=== PATIENT | male | born 1975 | race Caucasian/White ===

== ENCOUNTER → 2017-11-24 09:20 | Outpatient (CLI) | payer OTHER, SELFPAY ==
[2017-11-24 12:29] LABS: Absolute Lymphocyte Count 1.78 X10^3/ul (0.83-4.51); Absolute Neutrophil Count 2.3 X10^3/uL (2.0-7.7); Basophil# 0.02 X10^3/uL; Basophil% 0.4 % (0-1); Eosinophil# 0.13 X10^3/uL; Eosinophils% 2.8 % (0-5); Hematocrit 43.3 % (40-54); Hemoglobin 14.6 g/dl (13.0-16.5); Lymphocyte # 1.78 X10^3/ul (4.0); Lymphocyte % 38.3 % (19-41); Mean Corp Hgb Conc 33.7 g/gl (32-36); Mean Corpuscular Hgb 28.3 pg (27.0-32.0); Mean Corpuscular Volume 84.1 fL (80-94); Mean Platelet Vol. 10.8 fl (6.2-12.0); Monocyte# 0.45 X10^3/uL; Monocyte% 9.7 % (0-10); Neutrophil # 2.26 X10^3/uL (2.7-7.7); Neutrophil % 48.6 % (47-70); Platelet Count 217 K/mm3 (150-450); RBC Distribution Width CV 13.1 % (11.6-14.6); RBC Distribution Width SD 39.9 fl (35.1-43.9); Red Blood Count 5.15 M/mm3 (4.6-6.2); White Blood Count 4.7 K/mm3 (4.4-11.0)
[2017-11-24 12:32] LABS: POSITIVE COUNT NO; POSITIVE DIFFERENTIAL NO; POSITIVE MORPHOLOGY NO
[2017-11-24 12:38] LABS: ALB/GLOB Ratio 1.1 RATIO (0.9-2.4); AST(SGOT) 29 U/L (15-37); Alanine Aminotransfer ALT/SGPT 59 U/L (16-61); Albumin, Serum 3.9 g/dL (3.2-5.0); Alkaline Phosphatase 90 U/L (45-117); Anion Gap 6 (5-15); BUN 16 mg/dL (7-18); BUN/Creat Ratio 17.7 RATIO (10-20); Calcium,Total 8.9 mg/dL (8.5-10.1); Chloride 104 mmol/L (98-107); Cholesterol 198 mg/dL (200); Creatinine, Serum 0.91 mg/dL (0.70-1.30); EST Glomerular Filtration Rate 99 mL/min (>60); Est Glom Filt Rate - Afr Amer 119 mL/min (>60); Globulin 3.6 g/dL (2.2-4.2); Glucose 99 mg/dL (74-106); High Density Lipoprotein 80 mg/dL; Potassium 3.7 mmol/L (3.5-5.1); Protein, Total 7.5 g/dL (6.4-8.2); Sodium Level 141 mmol/L (136-145); Triglycerides 45 mg/dL; Very Low Density Lipoprotein 9 mg/dL (5-40)
== END ==
LOC: MTLAB 09:28 → MFPLAB 09:54
PROVIDERS: Family Provider Family Medicine; PCP Family Medicine; Visit Provider Family Medicine
DX: Z00.00 Encounter for general adult medical examination without abnormal findings (principal); C43.9 Malignant melanoma of skin, unspecified
CPT/HCPCS: 36415; 80053; 80061; 85025

== ENCOUNTER → 2017-12-24 11:08 | Outpatient (CLI) | payer OTHER, SELFPAY ==
--- NOTE | 2017-12-24 08:45 | MASS_PTH ---
PATIENT: NEELA CATALAN LOC: [facility] U#:[id number] AGE/SX: 49/M ROOM: RE12/24/[address]: Dr. Rafael Mckee MD : 1975 BED: DIS: SPEC #: [id number] RECD: 12/24/17 11:02 STATUS: CHANO JULEE #: [id number] ANGELA: 12/24/17 08:[address]: Rafael Mckee DEPT: SURGICAL PATHOLOGY RECD BY: Conchis Payne ENTERED: 12/24/17 12:35 SP TYPE: Mass OTHR DR: Dr. Angel Rodriges MD Tissues: Chest wall, NOS Procedures: Surgery Specimen Level IV HEADER OPERATION: Excision subcutaneous mass right chest wall PRE-OP DIAGNOSIS: Lesion of subcutaneous tissue L98.9; history melanoma TISSUE SUBMITTED: Subcutaneous mass right chest wall MICROSCOPIC DIAGNOSIS Subcutaneous mass, right chest wall, excision: Mature adipose tissue consistent with lipoma. AM:francisca 12/25/17 MICROSCOPIC DESCRIPTION Slides are reviewed. GROSS DESCRIPTION Received in fixative is one container labeled with the patient's name and designated subcutaneous mass right chest wall. The specimen consists of an irregular fragment of yellow fatty tissue measuring 4 x 2 x 1.2 cm. Serial sections reveal homogenous yellow cut surfaces without areas of cyst formation, necrosis or myxoid change. Sewer Line Repairer sections are submitted in one cassette. / AM:francisca 12/24/17 TC:1 CPT: 75217
== END ==
PROVIDERS: Family Provider Family Medicine; PCP Family Medicine; Visit Provider Surgery
DX: L98.9 Disorder of the skin and subcutaneous tissue, unspecified (principal)
CPT/HCPCS: 88305

== ENCOUNTER 2018-11-01 16:26 | Emergency (ER) | payer OTHER, SELFPAY ==
[2018-11-01 16:27] VITALS: BP 194/106; PULSE 64; RESP 18; TEMP 36.7; O2SAT 100; BMI 29.3
[2018-11-01 17:00] VITALS: BP 186/100; PULSE 58; RESP 16
--- NOTE | 2018-11-01 17:03 | RAD_ITS ---
STUDY: X-RAY CHEST REASON FOR EXAM: Male, 42 years old. Hypertension TECHNIQUE: AP COMPARISON: Prior comparison studies are not available for review at this time. FINDINGS: EKG leads project over the chest. The lungs are clear and expanded. There is no demonstrated pleural abnormality. Normal size heart. Normal mediastinum and vishnu. Normal visualized pulmonary arteries. Normal visualized aortic arch and descending thoracic aorta. No acute bony process. There is no demonstrated abnormality of the visualized soft tissue structures of the upper abdomen. RAD/Chest 1 View (Portable) IMPRESSION: Nonacute portable x-ray examination of the chest. Electronically Signed: Gianluca Lackey MD at 17:20 EST , Service support ,
--- NOTE | 2018-11-01 17:08 | ED.DCSUM_ITS ---
- ER Visit Summary Date of Service: 11/01/18 Chief Complaint: Elevated blood pressure History of Present Illness: The patient is a 42 M no segment past medical history the prior melanoma surgery many years ago. Patient states he recently stopped caffeine but really did not have excessive use. Recently his elevated blood pressure. Today's blood pressure is 160/100 and they sent in the ER to be evaluated. He really denies any significant headaches. He denies chest pain. He denies nausea, vomiting or diarrhea. He works out and he said he ran probably 15-17 miles this week without any difficulty and no chest pain. He is never been treated for hypertension before. Currently is on no medications. Physical Examination: Well-appearing middle-age male. Initial blood pressure 194 over 106. Pulse exam percent room air no signs of hypoxia. HEENT exam unremarkable. Neck nontender no lymphadenopathy. Lungs clear to auscultation bilaterally. Heart regular rhythm no murmur. Rate about 65. Abdomen soft and nontender. Normal bowel sounds no peritoneal signs. Extremities moves all 4. Calves nontender without edema. Neurologically is awake alert with no focal motor deficits. Moving all 4 extremities. 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 Normal dorsi plantar flexion. Back nontender. Skin normal. Test Results: EKG shows a normal sinus rhythm rate of 71 acute abnormality. No dysrhythmia or ischemia. CBC normal. Chemistries normal normal renal function with a creatinine of 1. Troponin normal. Portable chest x-ray one view shows no acute abnormality. Normal cardiac silhouette mediastinum. Emergency Department Course and Treatment: Patient has no history of hypertension because he is elevated blood pressures here. I am only giving him any medication and see how his blood pressure reacts on its own. He will screening labs done. Treatment Plan: Repeat exam patient is doing well at 1805. Repeat exam normal. We went over all his test results. We are not been a started on a blood pressure medication at this time because normally he runs well they showed me his most recent readings when he was giving blood. He will follow-up with his primary care physician Dr. Donte Rodriges after logging blood pressures for the next week. Return to the ER feeling worse. Disposition: Discharge Impression: Acutely elevated blood pressure This note was generated with [employer] dictation software. It may contain incorrect words, spelling, and punctuation that were not noted in review of the chart prior to signing ED Disposition - Plan for ED Patient: Referrals: Ifeanyi Rodriges MD [Primary Care Provider] -
[2018-11-01 17:30] VITALS: BP 142/94; PULSE 60; RESP 16; O2SAT 100
[2018-11-01 17:30] LABS: Absolute Lymphocyte Count 1.72 X10^3/ul (0.83-4.51); Absolute Neutrophil Count 3.3 X10^3/uL (2.0-7.7); Basophil# 0.01 X10^3/uL; Basophil% 0.2 % (0-1); Eosinophil# 0.05 X10^3/uL; Eosinophils% 0.9 % (0-5); Hematocrit 40.5 % (40-54); Hemoglobin 13.4 g/dl (13.0-16.5); Lymphocyte # 1.72 X10^3/ul (4.0); Lymphocyte % 31.2 % (19-41); Mean Corp Hgb Conc 33.1 g/gl (32-36); Mean Corpuscular Hgb 27.9 pg (27.0-32.0); Mean Corpuscular Volume 84.2 fL (80-94); Mean Platelet Vol. 10.5 fl (6.2-12.0); Monocyte# 0.42 X10^3/uL; Monocyte% 7.6 % (0-10); Neutrophil # 3.31 X10^3/uL (2.7-7.7); Neutrophil % 59.9 % (47-70); POSITIVE COUNT NO; POSITIVE DIFFERENTIAL NO; POSITIVE MORPHOLOGY NO; Platelet Count 203 K/mm3 (150-450); RBC Distribution Width CV 12.8 % (11.6-14.6); RBC Distribution Width SD 38.6 fl (35.1-43.9); Red Blood Count 4.81 M/mm3 (4.6-6.2); White Blood Count 5.5 K/mm3 (4.4-11.0)
[2018-11-01 17:46] LABS: Anion Gap 10 (5-15); BUN 17 mg/dL (7-18); BUN/Creat Ratio 17.1 RATIO (10-20); Calcium,Total 8.6 mg/dL (8.5-10.1); Chloride 107 mmol/L (98-107); EST Glomerular Filtration Rate 88 mL/min (>60); Est Glom Filt Rate - Afr Amer 106 mL/min (>60); Estimated Creatinine Clearance 107.78 ml/min; Glucose 102 mg/dL (74-106); Potassium 3.9 mmol/L (3.5-5.1); Sodium Level 145 mmol/L (136-145)
--- NOTE | 2018-11-01 18:08 | ED.DEP ---
ED Disposition - Plan for ED Patient: Disposition: Home or Assisted Living Instructions: ED Hypertension Poss Referrals: Ifeanyi Rodriges MD [Primary Care Provider] - 5-7 Days Additional Instructions: Continue to work out. Log your blood pressures twice daily and show this to Dr. Donte Rodriges when you follow-up. Return to ER if feeling a lot worse.
[2018-11-01 18:15] VITALS: BP 156/92; PULSE 57; RESP 15; O2SAT 97
== END 2018-11-01 18:18 | disposition home or self-care (01) ==
PROVIDERS: Emergency Provider Emergency Medicine; Family Provider Family Medicine; PCP Family Medicine
DX: R03.0 Elevated blood-pressure reading, without diagnosis of hypertension (principal)
CPT/HCPCS: 71045; 80048; 84484; 85025; 93005; 99284

== ENCOUNTER 2018-11-06 17:36 | Observation (INO) | payer OTHER, SELFPAY ==
[2018-11-06] VITALS (12 sets, daily range): BP systolic 133–179; BP diastolic 74–106; PULSE 50–65; RESP 15–22; TEMP 37.2; O2SAT 96–99; BMI 28.5; BMI 28.8; BMI 28.9
--- NOTE | 2018-11-06 17:47 | RAD_ITS ---
STUDY: X-RAY CHEST REASON FOR EXAM: Male, 42 years old. Fluctuating blood pressure and tightness in the throat. TECHNIQUE: 1 view COMPARISON: Prior chest radiograph of November 01, 2018 FINDINGS: The lungs are clear and expanded. There is no demonstrated pleural abnormality. Normal size heart. Normal mediastinum and vishnu. Normal visualized pulmonary arteries. Normal visualized aortic arch and descending thoracic aorta. Normal visualized thoracic spine. Normal visualized ribs, clavicles, and shoulders. There is no demonstrated abnormality of the visualized soft tissue structures of the upper abdomen. RAD/Chest 1 View (Portable) IMPRESSION: No acute cardiopulmonary findings or changes. Electronically Signed: Ibis Bocanegra MD at 18:08 EST , Service support ,
--- NOTE | 2018-11-06 17:47 | EKG12_ITS ---
Test Reason : CHEST TIGHTNESS Blood Pressure : / mmHG Vent. Rate : 051 BPM Atrial Rate : 051 BPM P-R Int : 174 ms QRS Dur : 112 ms QT Int : 438 ms P-R-T Axes : 003 033 005 degrees QTc Int : 403 ms Sinus bradycardia Inferior infarct , age undetermined Abnormal ECG Confirmed by NACHO DELACRUZ MD ([id number]), editor trade journal JOSE ANTON ([id number]) on 11/10/2018 9:18:26 AM Referred By: MARIPOSA
[2018-11-06 18:45] LABS: Absolute Lymphocyte Count 1.81 X10^3/ul (0.83-4.51); Absolute Neutrophil Count 2.5 X10^3/uL (2.0-7.7); Basophil# 0.02 X10^3/uL; Basophil% 0.4 % (0-1); Eosinophils% 2.1 % (0-5); Hematocrit 40.3 % (40-54); Hemoglobin 13.6 g/dl (13.0-16.5); Lymphocyte # 1.81 X10^3/ul (4.0); Lymphocyte % 37.2 % (19-41); Mean Corp Hgb Conc 33.7 g/gl (32-36); Mean Corpuscular Hgb 28.2 pg (27.0-32.0); Mean Corpuscular Volume 83.4 fL (80-94); Mean Platelet Vol. 10.5 fl (6.2-12.0); Monocyte% 8.2 % (0-10); Neutrophil # 2.54 X10^3/uL (2.7-7.7); Neutrophil % 52.1 % (47-70); Platelet Count 202 K/mm3 (150-450); RBC Distribution Width CV 12.8 % (11.6-14.6); RBC Distribution Width SD 38.6 fl (35.1-43.9); Red Blood Count 4.83 M/mm3 (4.6-6.2); White Blood Count 4.9 K/mm3 (4.4-11.0)
[2018-11-06 18:46] LABS: POSITIVE COUNT NO; POSITIVE DIFFERENTIAL NO; POSITIVE MORPHOLOGY NO
[2018-11-06] MEDS: Aspirin 81 MG TAB.CHEW 324 MG PO (18:49)
[2018-11-06 19:07] LABS: Anion Gap 4 (5-15); BUN 15 mg/dL (7-18); BUN/Creat Ratio 16.4 RATIO (10-20); Calcium,Total 8.5 mg/dL (8.5-10.1); Chloride 108 mmol/L (98-107); Creatinine, Serum 0.92 mg/dL (0.70-1.30); EST Glomerular Filtration Rate 97 mL/min (>60); Est Glom Filt Rate - Afr Amer 117 mL/min (>60); Estimated Creatinine Clearance 117.15 ml/min; Glucose 94 mg/dL (74-106); Potassium 3.9 mmol/L (3.5-5.1); Sodium Level 141 mmol/L (136-145)
--- NOTE | 2018-11-06 19:51 | HP.PCM_ITS ---
Problem List (1) Chest pain Status: Acute History of Present Illness Date of Admission: 11/06/18 Chief Complaint: chest pain The patient is a 42 year old M with no previous medical history of melanoma status post surgery who presented with a 5-day history of chest tightness. Associated with his symptoms is a sensation of blood running through his head which he could hear. Also has a feeling of throat tightness. He associated this with elevated blood pressure. He was at the emergency department 5 days ago where his blood pressure was elevated. He was instructed to log his blood pressure and show him to his PCP. He went to his chiropractor who adjusted his atlas after which his blood pressure returned to normal. On the day of this new presentation he was driving and he felt lightheaded. He also felt a tightness in his chest and tightness at the back of his throat. He denies any nausea, vomiting or diaphoresis. But he was burping. He called a friend who is a doctor who instructed him to come to the emergency department. His chest pain is nonradiating. He has headache and back soreness. He was given nitroglycerin which took his chest pain away but it gave him headache. He denies any aggravating factor. Past Medical History Medical History: Medical History (Last Updated 01/05/18 @ 08:34 by Sandra Lucia) Malignant melanoma of upper back C43.59 lipoma right chest wall Allergies Sulfa (Sulfonamide Antibiotics) Allergy (Verified 11/06/18 17:37) Unknown Home Medications: Ambulatory Orders Medication Instructions Recorded NK 11/26/17 Surgical History: Surgical History (Last Reviewed 11/07/18 @ 09:22 by Fransico Souza MD) History of vasectomy Z98.52 history excision melanoma on back history pilonidal cystectomy s/p Excsion lipoma right chest wall Onset Date: ~12/24/17 Lives: With Family Smoking Status: Never smoker Alcohol: Occasional - *Family History Maternal History Items: - - His mother had thyroid disease and had a thyroidectomy. Paternal History Items: - - His grandfather at the age of 48-50 in his sleep; cause of was unknown. Review of Systems Constitutional: Denies: Chills, Fever, Weight Change HEENT: Reports: Head Aches. Denies: Sinus Congestion, Sinus Drainage Cardiovascular: Reports: Chest Pain. Denies: Palpitations Respiratory: Denies: Cough, Shortness of breath at rest, Sputum production Gastrointestinal: Denies: Abdominal Pain, Nausea, Vomiting Genitourinary: Denies: Dysuria Musculoskeletal: Reports: Back Pain. Denies: Joint Pain, Joint Tenderness Skin: Denies: Rash, Wounds Neurological: Denies: Numbness, Tingling, Focal weakness Psychiatric: Denies: Anxiety, Depression, Homicidal Ideations, Suicidal Ideations Hematologic/ Lymphatic: Denies: Easy Bruising, Easy Bleeding VTE Information - Inpt Only VTE Present on Admission: No VTE Mechan Device Prophylaxis: None VTE Pharm Prophylaxis ordered?: Yes Patient Problems: Active and Suspected Problems (Last Updated 01/05/18 @ 08:34 by Sandra Lucia) Chest pain (Acute) - Physical Exam General: Alert, Oriented x3, Cooperative HEENT: Atraumatic, PERRLA, EOMI, Normocephalic Neck: Supple, No JVD, Negative Carotid Bruits Lungs: Clear to auscultation, Normal air movement Cardiovascular: No murmurs, Bradycardic Abdomen: Bowel Sounds Present, Soft, Non Tender Extremities: No edema, Capillary Refill Less than 3 Seconds Skin: No rashes, No breakdown Musculoskeletal: No Tenderness to Palpation of Joints or Extremities Neurological: Neuro grossly intact Psych/Mental Status: Normal Affect, Appropriate Vital Signs Temp Pulse Resp BP Pulse Ox 98.9 F 60 16 133/83 H 97 11/06/18 17:37 11/06/18 19:36 11/06/18 19:36 11/06/18 19:36 11/06/18 19:36 Oxygen Delivery Method Room Air Weight: 95.254 kg Body Mass Index (BMI) 28.5 Laboratory Tests Past 24 Hrs 11/06/18 11/06/18 18:35 18:35 WBC 4.9 RBC 4.83 Hgb 13.6 Hct 40.3 MCV 83.4 MCH 28.2 MCHC 33.7 RDW 12.8 RDW Differential 38.6 Plt Count 202 MPV 10.5 Immature Gran % (Auto) 0.000 Neut % (Auto) 52.1 Lymph % (Auto) 37.2 Fisher % (Auto) 8.2 Eos % (Auto) 2.1 Baso % (Auto) 0.4 Absolute Neuts (auto) 2.5 Absolute Lymphs (auto) 1.81 Total Counted Not Reportable Sodium 141 Potassium 3.9 Chloride 108 H Carbon Dioxide 29.0 Anion Gap 4 L BUN 15 Creatinine 0.92 Estim Creat Clear Calc 117.15 Est GFR (MDRD) Af Amer 117 Est GFR (MDRD) Non-Af 97 BUN/Creatinine Ratio 16.4 Glucose 94 Calcium 8.5 Troponin I < 0.015 TSH 0.60 Assessment/Plan All Active Problems (Last Updated 01/05/18 @ 08:34 by Sandra Lucia) Chest pain (Acute) The patient is a 42 year old M with no previous medical history of melanoma status post surgery who presented with a 5-day history of chest tightness; throat tightness and elevated blood pressure. Chest pain Admit to a monitored bed on PCU CXR independently reviewed confirms no acute cardiopulmonary process. EKG independently reviewed confirms no ST or T wave abnormality. Showed sinus bradycardia. Old records reviewed showed [] ASA 81 mg p.o. daily Nitropaste was placed in the emergency department. We will remove as patient to be having stress test. SL NTG 0.4 mg prn as needed for chest pain Morphine as needed for pain We will check lipid panel. High intensity statin ordered Serial cardiac enzymes Stat EKG as needed for chest pain Treadmill stress test in the AM if the cardiac enzymes are negative Will start patient on Lisinopril. Elevated blood pressure without diagnosis of hypertension. His elevated blood pressure could be because of anxiety. However because of concomitant chest pain we will start patient on low-dose of lisinopril. Consider continuing antihypertensive medication. DVT prophylaxis Continue heparin Code Visit OBSV E&M: 25408 Initial observation care L3
[2018-11-06] MEDS: Nitroglycerin Oint 1 INCH PACKET TRANSDERM. (19:56)
--- NOTE | 2018-11-06 20:04 | ED.VISSUMM ---
- ER Visit Summary Date of Service: 11/06/18 Chief Complaint: [Hypertension] History of Present Illness: The patient is a 42 M [presents the emergency department complaint of hypertension that started about 10 days ago. Patient was seen in the emergency department 5 days ago and evaluated with EKG and blood work which was unremarkable. Patient states that over the course of the week things seem to improve however today while driving he started feeling lightheaded and developed a tightness in his throat and some chest discomfort so he comes in for repeat evaluation after checking his blood pressure noting that it was in the 170s over 100s. Patient denies recent travel or surgery. Patient is a runner and is not been having chest pain or exertional dyspnea. Patient normally has a low heart rate. He denies feeling stressed or anxious. His not had hypertension in the past and does not take any medications.] Physical Examination: [HEENT-PERRLA, EOMI. Cranial nerves II through XII grossly intact. TMs clear. Mucous membranes moist. No adenopathy. Cardiovascular-regular rate and rhythm without murmur or ectopy Lungs-clear to auscultation, chest wall stable without crepitus or subcu emphysema Abdomen-normoactive bowel sounds, soft, nontender, no rebound or rigidity, no peritoneal signs. Extremities-intact ?4, normal range of motion, normal pulses, atraumatic] Test Results: [EKG obtained arrival shows sinus bradycardia with a ventricular rate of 51 bpm. CBC with differential was unremarkable. Chemistries unremarkable. Troponin was less than 0.015. TSH was 0.6. Chest x-ray showed nothing acute.] Emergency Department Course and Treatment: [Patient was given sublingual nitro which resolved his pain. Patient also had aspirin given. Patient had an inch of Nitropaste placed to the anterior chest wall] Treatment Plan: [Admit] Disposition: [Admit] Impression: [Chest pain-rule out acute viral syndrome] This note was generated with [employer] dictation software. It may contain incorrect words, spelling, and punctuation that were not noted in review of the chart prior to signing ED Disposition - Plan for ED Patient: Referrals: Ifeanyi Rodriges MD [Primary Care Provider] -
--- NOTE | 2018-11-06 21:36 | EKG12_ITS ---
Test Reason : CP ADMISSION Blood Pressure : / mmHG Vent. Rate : 054 BPM Atrial Rate : 054 BPM P-R Int : 184 ms QRS Dur : 110 ms QT Int : 434 ms P-R-T Axes : 030 -10 017 degrees QTc Int : 411 ms Sinus bradycardia Otherwise normal ECG When compared with ECG of 06-NOV-2018 17:44, MANUAL COMPARISON REQUIRED, DATA IS UNCONFIRMED Confirmed by JAYME CAMARGO, NACHO ([id number]), greeting card editor TREE CHEEK ([id number]) on 11/13/2018 9:52:02 AM Referred By: WHITLEY Confirmed By:NACHO DELACRUZ MD
[2018-11-06] MEDS: Acetaminophen 325 MG Tablet 650 MG PO (22:57)
[2018-11-06] MEDS: Lisinopril 5 MG Tablet PO (22:59)
[2018-11-06] MEDS: Atorvastatin Calcium 80 MG Tablet PO (22:59)
[2018-11-07] VITALS (9 sets, daily range): BP systolic 128–136; BP diastolic 61–79; PULSE 49–59; RESP 15–16; TEMP 36.6–36.8; O2SAT 96–98
--- NOTE | 2018-11-07 02:14 | NURSING ---
CARDIAC TROPONINS X 3 NOTED NEGATIVE. SBR-NSR ON MONITOR. PT IS NPO FOR AM STRESS TEST
[2018-11-07] MEDS: Lisinopril 5 MG Tablet PO (07:37)
[2018-11-07 07:41] LABS: Absolute Lymphocyte Count 1.42 X10^3/ul (0.83-4.51); Absolute Neutrophil Count 2.1 X10^3/uL (2.0-7.7); Basophil# 0.02 X10^3/uL; Basophil% 0.5 % (0-1); Eosinophil# 0.05 X10^3/uL; Eosinophils% 1.3 % (0-5); Hematocrit 40.3 % (40-54); Hemoglobin 13.4 g/dl (13.0-16.5); Lymphocyte # 1.42 X10^3/ul (4.0); Lymphocyte % 36.3 % (19-41); Mean Corp Hgb Conc 33.3 g/gl (32-36); Mean Corpuscular Hgb 27.8 pg (27.0-32.0); Mean Corpuscular Volume 83.6 fL (80-94); Mean Platelet Vol. 10.5 fl (6.2-12.0); Monocyte# 0.31 X10^3/uL; Monocyte% 7.9 % (0-10); Neutrophil # 2.11 X10^3/uL (2.7-7.7); Platelet Count 196 K/mm3 (150-450); RBC Distribution Width CV 12.7 % (11.6-14.6); RBC Distribution Width SD 38.3 fl (35.1-43.9); Red Blood Count 4.82 M/mm3 (4.6-6.2); White Blood Count 3.9 K/mm3 (4.4-11.0)
[2018-11-07 07:49] LABS: POSITIVE COUNT NO; POSITIVE DIFFERENTIAL NO; POSITIVE MORPHOLOGY NO
[2018-11-07 07:52] LABS: Anion Gap 8 (5-15); BUN 16 mg/dL (7-18); BUN/Creat Ratio 17.1 RATIO (10-20); Calcium,Total 8.3 mg/dL (8.5-10.1); Chloride 109 mmol/L (98-107); Cholesterol 168 mg/dL (200); Creatinine, Serum 0.93 mg/dL (0.70-1.30); EST Glomerular Filtration Rate 95 mL/min (>60); Est Glom Filt Rate - Afr Amer 115 mL/min (>60); Estimated Creatinine Clearance 115.89 ml/min; Glucose 93 mg/dL (74-106); High Density Lipoprotein 60 mg/dL; Potassium 3.7 mmol/L (3.5-5.1); Sodium Level 145 mmol/L (136-145); Triglycerides 74 mg/dL; Very Low Density Lipoprotein 15 mg/dL (5-40)
[2018-11-07] MEDS: Aspirin E.C. 81 MG Tablet PO (08:06)
[2018-11-07 08:10] LABS: International Normalized Ratio 1.1; Partial Thromboplast Time 29.3 Seconds (24.1-36.2); Prothrombin Time (Protime)PT. 13.8 SECONDS (11.7-14.9)
--- NOTE | 2018-11-07 11:53 | STRESSREP_ITS ---
Stress Test Report Exercise myocardial perfusion stress test. 42-year-old man with a history of chest pain. Stress protocol: Resting EKG demonstrates sinus bradycardia with a rate of 53 bpm normal intervals are noted resting blood pressure 142/84 mmHg. The patient exercised according to regular Yifan protocol for total duration of 9 minutes the maximum heart rate attained was 142 bpm which was 78% of maximum predicted heart rate the maximum workload was 10.1 metabolic equivalents. At rest there were no ST or T wave changes noted suggest ischemia peak exercise upsloping ST changes only were noted with no meet the criteria for ischemia. The resting blood pressure was 142/84 with a peak blood pressure of 240/104. Rate pressure product was 32,600. The test was terminated due to hypertensive response to exercise. No chest pain was noted. Cardio perfusion protocol. 12.0 mCi of technetium 99m sestamibi was injected at rest. The patient exerci sed according to regular Yifan protocol for total duration of 9 minutes at peak exercise 35.9 mCi of technetium 99m sestamibi was injected stress images were obtained stress and rest images were reconstructed and compared in the short axis vertical and horizontal long axis. Gated images were also obtained next Perfusion SPECT analysis: Review of the stress images demonstrate normal uptake of tracer noted in all areas of myocardium. The rest images similarly demonstrate normal uptake of tracer noted in all areas of the myocardium. No areas of reversibility are noted suggest ischemia no previous infarct is noted. Gated SPECT analysis: The gated ejection fraction is noted to be 56%. Conclusion: Exercise stress test with no EKG criteria for ischemia at a high workload. Nuclear images demonstrate normal perfusion. Hypertensive response to exercise. Preserved ejection fraction.
--- NOTE | 2018-11-07 14:10 | DCINST_ITS ---
- Discharge Diagnoses Current Active Problems: Current Active and Chronic Problems (Last Updated 01/05/18 @ 08:34 by Sandra Lucia) Chest pain (Acute) Reason(s) for Visit for Discharge Instructions: Chest pain You will use the following diet at home:: Cardiac Your food should be the consistency of: Regular Your liquids should be the consistency of: Regular/Thin Discharge Activity: Return to Normal Activity Additional Instructions: Continue to take all your medications. Follow-up for 2d-echo. Follow-up with Dr. Kim within 2 weeks. Follow-up with Dr. Rodriges within 2 weeks. Maintain a heart healthy diet. We have discussed potential side- effects of Lisinopril. Allergies/Adverse Reactions: Allergies Sulfa (Sulfonamide Antibiotics) Allergy (Verified 11/06/18 17:37) Unknown Medications to take at Discharge Lisinopril [Zestril] 10 mg PO DAILY #30 tablet 11/07/18 The following prescriptions were given: Lisinopril [Zestril] 10 mg PO DAILY #30 tablet Primary Care Physician: Ifeanyi Rodriges MD [Primary Care Provider] - Please follow up with your Primary Care Physician in: within 1-2 weeks Test Results: Test results from this visit will be discussed in further detail at your follow- up appointment, if applicable. Please Follow Up With: Gray Kim MD - \ When: within 1-2 weeks Proposed Discharge Date: 11/07/18
--- NOTE | 2018-11-07 14:18 | DS.PCM_ITS ---
Discharge Date and Diagnosis Date of Admission: 11/06/18 Date of Discharge: 11/07/18 - Primary Discharge Diagnosis Active and Suspected Problems (Last Updated 01/05/18 @ 08:34 by Sandra Lucia) Chest pain (Acute) Hypertensive urgency Hospital Course and Treatment Imaging Results: 11/07/18 05:55 Nuclear Stress Test - Treadmil [NM] AM (NON MEDS) Clinical Impression(s) from Imaging Studies Chest X-Ray 11/06/18 17:47 IMPRESSION: No acute cardiopulmonary findings or changes. Electronically Signed: Ibis Bocanegra MD at 18:08 EST , Service support , None Operations: None Summary of Care Provided: The patient is a 42 year old M with no significant medical history except for melanoma status post removal who comes with a 5-day history of chest tightness and a sensation of blood running through his head associated throat tightness. Patient has associated with this with elevated blood pressure. Patient had admitted to some chest tightness with lightheadedness but denied any nausea vomiting or diaphoresis. His chest pain went away when he was given nitrog lycerin in the emergency department. His admitting EKG was unremarkable. Troponins were negative. He was admitted to telemetry bed. No acute events. He underwent a stress test that was negative. Stress test was stopped after 7-9 minutes because his blood pressure was elevated more than 200 systolic. Patient was started on lisinopril, asked to do echo in the outpatient, he will follow-up with Dr. Kim within 2 weeks. Subjective: The day of discharge, patient felt improved, denied any new complaints. - Physical Exam General: Alert, Oriented x3, Cooperative, No apparent distress HEENT: Atraumatic, PERRLA, EOMI, Normocephalic Oral: Moist Mucosa Neck: Supple Lungs: Clear to auscultation, Normal air movement Cardiovascular: Regular rate, Regular Rhythm, Normal S1, Normal S2, No murmurs Abdomen: Bowel Sounds Present, Soft, Non Tender, Non-Distended, No Hepato- splenomegaly Extremities: No edema Skin: No rashes, No breakdown Musculoskeletal: No Tenderness to Palpation of Joints or Extremities Lymphatic: No Cervical, Supraclavicular, or Inguinal Adenopathy Neurological: Cranial nerves II-XII grossly intact, Neuro grossly intact Psych/Mental Status: Normal Affect, Appropriate Vital Signs Temp Pulse Resp BP Pulse Ox 98.2 F 58 L 16 128/79 H 96 11/07/18 10:46 11/07/18 12:06 11/07/18 10:46 11/07/18 12:06 11/07/18 10:46 Oxygen Delivery Method Room Air Weight: 96.5 kg Body Mass Index (BMI) 28.8 Intake and Output for Last 24 Hours 11/05/18 11/06/18 11/07/18 23:59 23:59 23:59 Intake Total 150 / 150 120 / 120 Balance 150 / 150 120 / 120 Laboratory Tests Past 24 Hrs 11/06/18 11/06/18 11/06/18 18:35 18:35 21:52 WBC 4.9 RBC 4.83 Hgb 13.6 Hct 40.3 MCV 83.4 MCH 28.2 MCHC 33.7 RDW 12.8 RDW Differential 38.6 Plt Count 202 MPV 10.5 Immature Gran % (Auto) 0.000 Neut % (Auto) 52.1 Lymph % (Auto) 37.2 Guadalupe % (Auto) 8.2 Eos % (Auto) 2.1 Baso % (Auto) 0.4 Absolute Neuts (auto) 2.5 Absolute Lymphs (auto) 1.81 Total Counted Not Reportable PT INR APTT Sodium 141 Potassium 3.9 Chloride 108 H Carbon Dioxide 29.0 Anion Gap 4 L BUN 15 Creatinine 0.92 Estim Creat Clear Calc 117.15 Est GFR (MDRD) Af Amer 117 Est GFR (MDRD) Non-Af 97 BUN/Creatinine Ratio 16.4 Glucose 94 Calcium 8.5 Troponin I < 0.015 < 0.015 Triglycerides Cholesterol LDL Cholesterol VLDL Cholesterol HDL Cholesterol TSH 0.60 11/07/18 11/07/18 11/07/18 00:24 07:05 07:05 WBC RBC Hgb Hct MCV MCH MCHC RDW RDW Differential Plt Count MPV Immature Gran % (Auto) Neut % (Auto) Lymph % (Auto) Guadalupe % (Auto) Eos % (Auto) Baso % (Auto) Absolute Neuts (auto) Absolute Lymphs (auto) Total Counted PT 13.8 INR 1.1 APTT 29.3 Sodium 145 Potassium 3.7 Chloride 109 H Carbon Dioxide 28.0 Anion Gap 8 BUN 16 Creatinine 0.93 Estim Creat Clear Calc 115.89 Est GFR (MDRD) Af Amer 115 Est GFR (MDRD) Non-Af 95 BUN/Creatinine Ratio 17.1 Glucose 93 Calcium 8.3 L Troponin I < 0.015 Triglycerides 74 Cholesterol 168 LDL Cholesterol 93 VLDL Cholesterol 15 HDL Cholesterol 60 TSH 11/07/18 07:05 WBC 3.9 L RBC 4.82 Hgb 13.4 Hct 40.3 MCV 83.6 MCH 27.8 MCHC 33.3 RDW 12.7 RDW Differential 38.3 Plt Count 196 MPV 10.5 Immature Gran % (Auto) 0.000 Neut % (Auto) 54.0 Lymph % (Auto) 36.3 Guadalupe % (Auto) 7.9 Eos % (Auto) 1.3 Baso % (Auto) 0.5 Absolute Neuts (auto) 2.1 Absolute Lymphs (auto) 1.42 Total Counted Not Reportable PT INR APTT Sodium Potassium Chloride Carbon Dioxide Anion Gap BUN Creatinine Estim Creat Clear Calc Est GFR (MDRD) Af Amer Est GFR (MDRD) Non-Af BUN/Creatinine Ratio Glucose Calcium Troponin I Triglycerides Cholesterol LDL Cholesterol VLDL Cholesterol HDL Cholesterol TSH Discharge Diet: Low fat/ Low Cholesterol, 2000 mg Sodium Diet Discharge Activity: Return to Normal Activity Home Medications: Medications to take at Discharge Lisinopril [Zestril] 10 mg PO DAILY #30 tablet 11/07/18 Following Prescrptions Were Given to Patient: Lisinopril [Zestril] 10 mg PO DAILY #30 tablet Other Amb Orders: Echo Complete [ECHO] Location: None Selected Primary Care Physician: Ifeanyi Rodriges MD [Primary Care Provider] - Please follow up with your Primary Care Physician in: within 1-2 weeks Please Follow Up With: Gray Kim MD - \ When: within 1-2 weeks Disposition: Home Minutes spent on discharge:: 40 Patient Condition:: Stable Medical Necessity - Tobacco Use Smoking Status: Never smoker Tobacco Use: Non-smoker Meaningful Use Info Meaningful Use Diagnoses (Choose all that apply): None applicable Code Visit Inpatient E&M: 79771 Disch Hosp
== END 2018-11-07 14:03 | disposition home or self-care (01) ==
LOC: ED 18:38 → PCU 20:31
PROVIDERS: Admitting Provider Hospitalist; Emergency Provider Emergency Medicine; Family Provider Family Medicine; PCP Family Medicine; Visit Provider Internal Medicine
DX: R07.89 Other chest pain (principal); I16.0 Hypertensive urgency; Z85.820 Personal history of malignant melanoma of skin; R03.0 Elevated blood-pressure reading, without diagnosis of hypertension
CPT/HCPCS: 36415; 71045; 78452; 80048; 80061; 84443; 84484; 85025; 85610; 85730; 93005; 93017; 99218; 99283; A9500; A4216; G0378

== ENCOUNTER → 2018-11-10 10:56 | Outpatient (CLI) | payer OTHER, SELFPAY ==
[2018-11-06 21:18] VITALS: BMI 28.8
[2018-11-10 12:12] LABS: Absolute Lymphocyte Count 1.38 X10^3/ul (0.83-4.51); Absolute Neutrophil Count 3.5 X10^3/uL (2.0-7.7); Basophil# 0.02 X10^3/uL; Basophil% 0.4 % (0-1); Eosinophil# 0.03 X10^3/uL; Eosinophils% 0.6 % (0-5); Hematocrit 42.5 % (40-54); Hemoglobin 14.2 g/dl (13.0-16.5); Lymphocyte # 1.38 X10^3/ul (4.0); Lymphocyte % 25.7 % (19-41); Mean Corp Hgb Conc 33.4 g/gl (32-36); Mean Corpuscular Volume 83.8 fL (80-94); Mean Platelet Vol. 11.2 fl (6.2-12.0); Monocyte# 0.47 X10^3/uL; Monocyte% 8.8 % (0-10); Neutrophil # 3.47 X10^3/uL (2.7-7.7); Neutrophil % 64.5 % (47-70); Platelet Count 219 K/mm3 (150-450); RBC Distribution Width CV 12.9 % (11.6-14.6); RBC Distribution Width SD 38.8 fl (35.1-43.9); Red Blood Count 5.07 M/mm3 (4.6-6.2); White Blood Count 5.4 K/mm3 (4.4-11.0)
[2018-11-10 12:13] LABS: POSITIVE COUNT NO; POSITIVE DIFFERENTIAL NO; POSITIVE MORPHOLOGY NO
[2018-11-10 12:17] LABS: Color, Urine Yellow (Yellow); Glucose, Dipstick Normal (Normal); Ketone-Dipstick Negative (Negative); Leukocyte Esterase-Dipstick 25 /ul (Negative); Nitrite-Dipstick Negative (Negative); Occult Blood-Urine Negative /ul (Negative); Protein-Dipstick Negative (Negative); Urine Bilirubin Dipstick Negative (Negative); Urine Clarity Clear (Clear); Urine Urobilinogen Normal (Normal)
[2018-11-10 12:59] LABS: ALB/GLOB Ratio 1.2 RATIO (0.9-2.4); AST(SGOT) 18 U/L (15-37); Alanine Aminotransfer ALT/SGPT 39 U/L (16-61); Albumin, Serum 4.1 g/dL (3.2-5.0); Alkaline Phosphatase 82 U/L (45-117); Anion Gap 10 (5-15); BUN 13 mg/dL (7-18); BUN/Creat Ratio 12.6 RATIO (10-20); CRP, High Sensitivity Cardiac 0.61 mg/L; Calcium,Total 8.7 mg/dL (8.5-10.1); Chloride 107 mmol/L (98-107); Creatinine, Serum 1.03 mg/dL (0.70-1.30); EST Glomerular Filtration Rate 85 mL/min (>60); Est Glom Filt Rate - Afr Amer 102 mL/min (>60); Free T3 3.2 pg/mL (2.18-3.98); Globulin 3.4 g/dL (2.2-4.2); Glucose 85 mg/dL (74-106); Potassium 3.8 mmol/L (3.5-5.1); Protein, Total 7.5 g/dL (6.4-8.2); Sodium Level 145 mmol/L (136-145); T4 Total, Thyroxin 8.5 ug/dL (4.5-12.1); Thyroid Stim Hormone (TSH) 0.86 uIU/mL (0.358-3.74)
== END ==
PROVIDERS: Family Provider Family Medicine; PCP Family Medicine; Referring Provider Family Medicine; Visit Provider Family Medicine
DX: I10 Essential (primary) hypertension (principal)
CPT/HCPCS: 36415; 80053; 81002; 83970; 84403; 84436; 84443; 84481; 85025; 86141

== ENCOUNTER → 2018-11-10 13:00 | Outpatient (CLI) | payer OTHER, SELFPAY ==
[2018-11-06 21:18] VITALS: BMI 28.8
== END ==
PROVIDERS: Family Provider Family Medicine; PCP Family Medicine; Referring Provider Family Medicine; Visit Provider Family Medicine
DX: I10 Essential (primary) hypertension (principal)
CPT/HCPCS: 93788

== ENCOUNTER → 2018-11-12 08:48 | Outpatient (CLI) | payer OTHER, SELFPAY ==
[2018-11-06 21:18] VITALS: BMI 28.8
--- NOTE | 2018-11-12 08:56 | RDU_ITS ---
Reason For Study: HYPERTENSION Right Renal Artery Left Renal Artery Right renal artery ostium 130/42.9 Left renal artery ostium 120/37 RSV/EDV. PSV/EDV. Right renal artery proximal 139/52 Left renal artery proximal PSV/EDV PSV/EDV. 122/45.3 . Right renal artery mid 156/45.6 Left renal artery mid 132/42.9 PSV/EDV. PSV/EDV . Right renal artery distal 146/42.9 Left renal artery distal 147/45.7 PSV/EDV. PSV/EDV. Right Renal Parenchyma Left Renal Parenchyma Upper Pole Medula 29.0/9.5 PSV/EDV. Left upper pole medulla 33.6/13.1 Right upper pole medulla EDR .33 . PSV/EDV . Right upper pole medulla R.I. .67 . Left upper pole medulla EDR .39 . Upper Kyle Cortx 27.2/9.8 PSV/EDV. Left upper pole medulla R.I. .61 . Right upper pole cortex EDR .36 . UP Cortex 26.0/8.3 PSV/EDV. Right upper pole cortex R.I. .64 . Left upper pole cortex EDR .32 . Right lower Pole medulla 33.9/10.4 Left upper pole cortex R.I. .68 . PSV/EDV . Left lower Pole medulla 33.9/12.5 Right lower pole medulla EDR .31 . PSV/EDV . Right lower pole medulla R.I. .69 . Left lower pole medulla EDR .37 . Lower Pole Cortex 29.0/10.7 Left lower pole medulla R.I. .63 . PSV/EDV. Lower Pole Cortx 28.7/9.8 PSV/EDV. Right lower pole cortex EDR .37 . Left lower pole cortex EDR .34 . Right lower pole cortex R.I. .63 . Left lower pole cortex R.I. .66 . Right Renal Hilar Left Renal Hilar Right Hilar avg 68.4/26.0 PSV/EDV. LT Hilar avg 47.7/16.2 PSV/EDV . Right hilar acceleration time 73 Left hilar acceleration time 51 m/sec. m/sec. Right Renal Dimensions Left Renal Dimensions Right kidney size 11.2 cm . Left kidney size 11.1 cm . Right cortical dimension 1.5 cm . Left cortical dimension 1.6 cm . Aorta Proximal abdominal aorta 1.6 X 1.6 cm . Distal abdominal aorta 1.5 X 1.5 cm . Proximal abdominal aorta peak systolic velocity is 133 cm/sec . Distal abdominal aorta peak systolic velocity is 128 cm/sec . Interpretation Summary Dimensions of the intra-abdominal aorta appear normal, without evidence of aneurysmal dilatation. Renal artery velocities are bilaterally normal. Acceleration times are normal bilaterally. There is no evidence of hemodynamically significant renal artery stenosis on either side. Renovascular resistance appears to be bilaterally normal . The right cortical dimension is normal. The left cortical dimension is increased. Kidneys appear normal in size bilaterally. Ordering Physician: Kenn Mcdonough Referring Physician: Kenn Mcdonough Performed By: Niki Allan RVT
--- NOTE | 2018-11-12 09:23 | ECHOD_ITS ---
Reason For Study: CP Procedure This was a 2D Doppler, Color Flow transthoracic echocardiogram. Exam performed in department. Left Ventricle Normal LV size. Left ventricular systolic function is normal. The estimated ejection fraction is 60 %. No evidence for diastolic dysfunction. No regional wall motion abnormalities noted. Right Ventricle Normal RV size. Normal systolic function. Atria The left atrium is mildly enlarged. The right atrium is mildly enlarged. Mitral Valve Normal mitral valve. Tricuspid Valve Normal tricuspid valve. Aortic Valve Normal aortic valve. Trisinus/trileaflet aortic valve. Pulmonic Valve Normal pulmonic valve. Great Vessels Normal aortic root. The pulmonary artery is normal size. Normal inferior vena cava. Pericardium/Pleural No pericardial effusion. MMode/2D Measurements & Calculations LVIDd: 5.7 cm IVSd: 1.2 cm Ao root diam: 3.6 cm LVIDs: 3.8 cm LVPWd: 1.1 cm LA dimension: 3.9 cm RVDd: 4.2 cm FS: 33.0 % LAV(MOD-bp): 65.3 ml LA A4 area: 20.1 cm2 RA A4 area: 22.4 cm2 LAV(MOD-bp) Indexed: 30.3 ml/m2 LAV(MOD-sp2): 68.7 ml LAV(MOD-sp4): 59.9 ml Time Measurements MV dec time: 0.24 sec Doppler Measurements & Calculations MV E max duke: 97.1 cm/sec Lat Peak E' Duke: 21.4 cm/sec Med Peak E' Duke: 13.8 cm/sec MV A max duke: 54.2 cm/sec E/E' lat: 4.5 E/E' med: 7.1 MV E/A: 1.8 MV V2 max: 100.4 cm/sec MV P1/2t max duke: 98.9 cm/sec Ao V2 max: 119.1 cm/sec MV max P.0 mmHg MV P1/2t: 99.7 msec Ao max P.7 mmHg MV V2 mean: 44.8 cm/sec MV dec slope: 290.4 cm/sec2 Ao V2 mean: 80.0 cm/sec MV mean P.0 mmHg MVA(P1/2t): 2.2 cm2 Ao mean P.8 mmHg MV V2 VTI: 37.9 cm Ao V2 VTI: 25.3 cm LV V1 max: 100.3 cm/sec PA V2 max: 109.8 cm/sec LV V1 max P.0 mmHg LV V1 mean P.1 mmHg LV V1 mean: 67.8 cm/sec LV V1 VTI: 24.9 cm Interpretation Summary Normal LV size. Left ventricular systolic function is normal. The estimated ejection fraction is 60 %. No evidence for diastolic dysfunction. Structurally normal valves. Ordering Physician: Kenn Mcdonough Referring Physician: Kenn Mcdonough Performed By: Earl Macias RCS
[2018-11-19 13:11] LABS: Aldosterone, 24Ur 7.69 ug/24 hr (0.00-19.00); Aldosterone, Ur 2.63 ug/L (Not Estab.); Metanephrine, Ur 28 ug/L (Undefined); Metanephrines, 24Ur 82 ug/24 hr (45-290); Normetanephrines, 24Ur 234 ug/24 hr (82-500); Normetanephrines, Ur 80 ug/L (Undefined)
== END ==
PROVIDERS: Family Provider Family Medicine; PCP Family Medicine; Referring Provider Family Medicine; Visit Provider Family Medicine
DX: R07.9 Chest pain, unspecified (principal); I10 Essential (primary) hypertension
CPT/HCPCS: 82088; 83835; 93306; 93975

== ENCOUNTER → 2018-11-18 11:12 | Outpatient (CLI) | payer OTHER, SELFPAY ==
[2018-11-18 10:00] VITALS: BMI 28.6
[2018-11-23 12:08] LABS: Dopamine, Pl <30 pg/mL (0-48); Epinephrine, Pl 21 pg/mL (0-62); Norepinephrine, Pl 908 pg/mL (0-874)
[2018-11-23 12:15] LABS: Aldosterone, Serum 4.6 ng/dL (0.0-30.0); Renin, Plasma 0.245 ng/mL/hr (0.167-5.380)
== END ==
PROVIDERS: Family Provider Family Medicine; PCP Family Medicine; Referring Provider Internal Medicine Cardiovascular Disease; Visit Provider Internal Medicine Cardiovascular Disease
DX: I10 Essential (primary) hypertension (principal)
CPT/HCPCS: 36415; 82088; 82384; 84244

== ENCOUNTER → 2018-12-11 15:06 | Outpatient (CLI) | payer OTHER, SELFPAY ==
[2018-11-18 10:00] VITALS: BMI 28.6
[2018-12-11 17:51] LABS: Progesterone Level 0.22 ng/mL (See Comment); Vitamin B12 541 pg/mL (211-911); Vitamin D,25 Hydroxy 18.1 ng/mL (29.95-100.01)
[2018-12-11 18:21] LABS: Homocysteine 7.1 umol/L (3.2-10.7)
[2018-12-11 20:05] LABS: Estradiol 21.8 pg/mL; Iron 77 ug/dL (65-175); PSA,Total - Annual Screen 1.41 ng/mL (0.00-4.00); Prolactin 10.1 ng/mL
[2018-12-11 20:16] LABS: Hemoglobin A1c 5.8 % (4.2-6.3)
[2018-12-16 09:17] LABS: DHEA Sulfate 276.4 ug/dL (102.6-416.3); Insulin Like Growth Factor 167 ng/mL (75-216); Testosterone, % Free 2.79 % (1.50-4.20)
[2018-12-16 11:30] LABS: Sex Hormone-binding Globulin 36.4 nmol/L (16.5-55.9); Testosterone, Total 276 ng/dL (264-916)
== END ==
PROVIDERS: Family Provider Family Medicine; PCP Family Medicine; Referring Provider Registered Nurse; Visit Provider Registered Nurse
DX: R53.82 Chronic fatigue, unspecified (principal); M62.81 Muscle weakness (generalized); E29.1 Testicular hypofunction
CPT/HCPCS: 36415; 82306; 82533; 82607; 82627; 82670; 82746; 83001; 83002; 83036; 83090; 83540; 84144; 84146; 84153; 84270; 84305; 84402; 84403; 82626; G0103

== ENCOUNTER → 2019-02-10 07:55 | Outpatient (CLI) | payer OTHER, SELFPAY ==
[2018-11-18 10:00] VITALS: BMI 28.6
[2019-02-10 10:20] LABS: Hemoglobin A1c 5.6 % (4.2-6.3)
[2019-02-10 10:22] LABS: Progesterone Level 0.49 ng/mL (See Comment); Vitamin B12 405 pg/mL (211-911); Vitamin D,25 Hydroxy 40.8 ng/mL (29.95-100.01)
[2019-02-10 11:36] LABS: AST(SGOT) 20 U/L (15-37); Alanine Aminotransfer ALT/SGPT 30 U/L (16-61); Albumin, Serum 3.4 g/dL (3.2-5.0); Alkaline Phosphatase 61 U/L (45-117); Anion Gap 7 (5-15); BUN 15 mg/dL (7-18); Calcium,Total 8.3 mg/dL (8.5-10.1); Chloride 106 mmol/L (98-107); Cholesterol 171 mg/dL (200); EST Glomerular Filtration Rate 87 mL/min (>60); Est Glom Filt Rate - Afr Amer 106 mL/min (>60); Estradiol 43.8 pg/mL; Globulin 3.3 g/dL (2.2-4.2); Glucose 100 mg/dL (74-106); High Density Lipoprotein 56 mg/dL; PSA,Total - Annual Screen 1.31 ng/mL (0.00-4.00); Potassium 3.6 mmol/L (3.5-5.1); Protein, Total 6.7 g/dL (6.4-8.2); Sodium Level 142 mmol/L (136-145); Triglycerides 41 mg/dL; Very Low Density Lipoprotein 8 mg/dL (5-40)
[2019-02-15 03:06] LABS: Testosterone, % Free 3.66 % (1.50-4.20); Testosterone, Free 38.36 ng/dL (5.00-21.00)
[2019-02-15 11:10] LABS: DHEA Sulfate 268.3 ug/dL (102.6-416.3); Testosterone, Total 1048 ng/dL (264-916)
== END ==
PROVIDERS: Family Provider Family Medicine; PCP Family Medicine; Referring Provider Registered Nurse; Visit Provider Registered Nurse
DX: R53.82 Chronic fatigue, unspecified (principal); M62.81 Muscle weakness (generalized); E29.1 Testicular hypofunction
CPT/HCPCS: 36415; 80053; 80061; 82306; 82607; 82627; 82670; 82746; 83036; 84144; 84153; 84402; 84403; 82626; G0103

== ENCOUNTER → 2019-04-16 06:50 | Outpatient (CLI) | payer OTHER, SELFPAY ==
[2018-11-18 10:00] VITALS: BMI 28.6
[2019-04-16 07:37] LABS: Hematocrit 41.2 % (40-54); Hemoglobin 12.9 g/dL (13.0-16.5); Mean Corp Hgb Conc 31.3 g/dL (32-36); Mean Corpuscular Hgb 25.4 pg (27.0-32.0); Mean Corpuscular Volume 81.1 fL (80-94); Mean Platelet Vol. 10.4 fl (6.2-12.0); Platelet Count 234 K/mm3 (150-450); Red Blood Count 5.08 M/mm3 (4.6-6.2); White Blood Count 4.6 K/mm3 (4.4-11.0)
[2019-04-16 09:58] LABS: Progesterone Level 0.79 ng/mL (See Comment); Vitamin B12 382 pg/mL (211-911); Vitamin D,25 Hydroxy 51.4 ng/mL (29.95-100.01)
[2019-04-16 11:46] LABS: ALB/GLOB Ratio 1.2 RATIO (0.9-2.4); AST(SGOT) 14 U/L (15-37); Alanine Aminotransfer ALT/SGPT 24 U/L (16-61); Albumin, Serum 3.6 g/dL (3.2-5.0); Alkaline Phosphatase 52 U/L (45-117); Anion Gap 4 (5-15); BUN 16 mg/dL (7-18); BUN/Creat Ratio 14.8 RATIO (10-20); Calcium,Total 8.5 mg/dL (8.5-10.1); Chloride 109 mmol/L (98-107); Cholesterol 162 mg/dL (200); Creatinine, Serum 1.08 mg/dL (0.70-1.30); EST Glomerular Filtration Rate 80 mL/min (>60); Est Glom Filt Rate - Afr Amer 97 mL/min (>60); Estradiol 41.8 pg/mL; Globulin 3.1 g/dL (2.2-4.2); Glucose 99 mg/dL (74-106); High Density Lipoprotein 53 mg/dL; Potassium 4.1 mmol/L (3.5-5.1); Protein, Total 6.7 g/dL (6.4-8.2); Sodium Level 142 mmol/L (136-145); Triglycerides 60 mg/dL; Very Low Density Lipoprotein 12 mg/dL (5-40)
[2019-04-19 09:07] LABS: Testosterone, % Free 4.24 % (1.50-4.20); Testosterone, Free 61.14 ng/dL (5.00-21.00)
[2019-04-19 11:57] LABS: Testosterone, Total 1442 ng/dL (264-916)
== END ==
PROVIDERS: Family Provider Family Medicine; PCP Family Medicine
DX: M62.81 Muscle weakness (generalized) (principal); R53.82 Chronic fatigue, unspecified; E29.1 Testicular hypofunction
CPT/HCPCS: 36415; 80053; 80061; 82306; 82607; 82627; 82670; 82746; 84144; 84402; 84403; 85027; 82626

== ENCOUNTER → 2019-07-23 08:38 | Outpatient (CLI) | payer OTHER, SELFPAY ==
[2018-11-18 10:00] VITALS: BMI 28.6
[2019-07-23 10:16] LABS: Hematocrit 43.2 % (40-54); Hemoglobin 13.5 g/dL (13.0-16.5); Mean Corp Hgb Conc 31.3 g/dL (32-36); Mean Corpuscular Hgb 25.4 pg (27.0-32.0); Mean Corpuscular Volume 81.2 fL (80-94); Mean Platelet Vol. 10.4 fl (6.2-12.0); Platelet Count 235 K/mm3 (150-450); RBC Distribution Width CV 17.4 % (11.6-14.6); RBC Distribution Width SD 51.1 fl (35.1-43.9); Red Blood Count 5.32 M/mm3 (4.6-6.2); White Blood Count 6.4 K/mm3 (4.4-11.0)
[2019-07-23 10:40] LABS: Hemoglobin A1c 5.5 % (4.2-6.3)
[2019-07-23 10:42] LABS: Progesterone Level 0.93 ng/mL (See Comment); Vitamin B12 704 pg/mL (211-911)
[2019-07-23 10:47] LABS: AST(SGOT) 74 U/L (15-37); Alanine Aminotransfer ALT/SGPT 160 U/L (16-61); Albumin, Serum 3.7 g/dL (3.2-5.0); Alkaline Phosphatase 180 U/L (45-117); Anion Gap 5 (5-15); BUN 19 mg/dL (7-18); BUN/Creat Ratio 15.4 RATIO (10-20); CRP, High Sensitivity Cardiac 5.04 mg/L; Calcium,Total 8.9 mg/dL (8.5-10.1); Chloride 103 mmol/L (98-107); Cholesterol 182 mg/dL (200); Creatinine, Serum 1.23 mg/dL (0.70-1.30); EST Glomerular Filtration Rate 69 mL/min (>60); Est Glom Filt Rate - Afr Amer 83 mL/min (>60); Estradiol 28.6 pg/mL; Follicle Stimulating Hormone < 0.2 mIU/mL; Globulin 3.6 g/dL (2.2-4.2); Glucose 94 mg/dL (74-106); High Density Lipoprotein 63 mg/dL; Iron 58 ug/dL (65-175); Luteinizing Hormone < 0.2 mIU/mL; Magnesium 2.1 mg/dL (1.6-2.6); Potassium 4.2 mmol/L (3.5-5.1); Prolactin 8.6 ng/mL; Protein, Total 7.3 g/dL (6.4-8.2); Sodium Level 138 mmol/L (136-145); T4 Total, Thyroxin 9.8 ug/dL (4.5-12.1); Thyroid Stim Hormone (TSH) 0.39 uIU/mL (0.358-3.74); Triglycerides 49 mg/dL; Very Low Density Lipoprotein 10 mg/dL (5-40)
[2019-07-23 10:50] LABS: Homocysteine 6.7 umol/L (3.2-10.7)
[2019-07-26 15:08] LABS: DHEA Sulfate 212.9 ug/dL (102.6-416.3); Insulin Like Growth Factor 178 ng/mL (75-216); Testosterone, % Free 2.42 % (1.50-4.20); Testosterone, Free 20.18 ng/dL (5.00-21.00)
[2019-07-26 22:38] LABS: Sex Hormone-binding Globulin 30.6 nmol/L (16.5-55.9); Testosterone, Total 834 ng/dL (264-916)
== END ==
PROVIDERS: Family Provider Family Medicine; PCP Family Medicine; Referring Provider Nurse Practitioner Family; Visit Provider Nurse Practitioner Family
DX: E29.1 Testicular hypofunction (principal); M62.81 Muscle weakness (generalized); R53.82 Chronic fatigue, unspecified; R68.82 Decreased libido
CPT/HCPCS: 36415; 80053; 80061; 82306; 82533; 82607; 82627; 82670; 82746; 83001; 83002; 83036; 83090; 83540; 83735; 84144; 84146; 84270; 84305; 84402; 84403; 84436; 84439; 84443; 84481; 85027; 86141; 82626

== ENCOUNTER → 2019-08-11 09:04 | Outpatient (CLI) | payer OTHER, SELFPAY ==
[2018-11-18 10:00] VITALS: BMI 28.6
[2019-08-11 10:02] LABS: Absolute Neutrophil Count 1.9 X10^3/uL (2.0-7.7); Basophil# 0.02 X10^3/uL; Basophil% 0.4 % (0-1); Eosinophil# 0.08 X10^3/uL; Eosinophils% 1.8 % (0-5); Hematocrit 43.1 % (40-54); Hemoglobin 13.7 g/dL (13.0-16.5); Lymphocyte % 46.1 % (19-41); Mean Corp Hgb Conc 31.8 g/dL (32-36); Mean Corpuscular Hgb 25.7 pg (27.0-32.0); Mean Corpuscular Volume 80.7 fL (80-94); Monocyte# 0.45 X10^3/uL; Monocyte% 9.9 % (0-10); NRBC Flagged by Analyzer 0 % (0-5); Neutrophil % 41.6 % (47-70); Platelet Count 225 K/mm3 (150-450); RBC Distribution Width CV 16.1 % (11.6-14.6); RBC Distribution Width SD 46.1 fl (35.1-43.9); Red Blood Count 5.34 M/mm3 (4.6-6.2); White Blood Count 4.6 K/mm3 (4.4-11.0)
[2019-08-11 10:13] LABS: ALB/GLOB Ratio 1.1 RATIO (0.9-2.4); AST(SGOT) 29 U/L (15-37); Alanine Aminotransfer ALT/SGPT 56 U/L (16-61); Albumin, Serum 3.8 g/dL (3.2-5.0); Alkaline Phosphatase 87 U/L (45-117); Anion Gap 4 (5-15); BUN 15 mg/dL (7-18); BUN/Creat Ratio 13.5 RATIO (10-20); Calcium,Total 8.7 mg/dL (8.5-10.1); Chloride 106 mmol/L (98-107); Creatinine, Serum 1.11 mg/dL (0.70-1.30); EST Glomerular Filtration Rate 77 mL/min (>60); Est Glom Filt Rate - Afr Amer 94 mL/min (>60); Globulin 3.4 g/dL (2.2-4.2); Glucose 93 mg/dL (74-106); Iron 75 ug/dL (65-175); Protein, Total 7.2 g/dL (6.4-8.2); Sodium Level 141 mmol/L (136-145)
== END ==
PROVIDERS: Family Provider Family Medicine; PCP Family Medicine; Referring Provider Nurse Practitioner Family; Visit Provider Nurse Practitioner Family
DX: M62.81 Muscle weakness (generalized) (principal); R53.82 Chronic fatigue, unspecified
CPT/HCPCS: 36415; 80053; 83540; 85025

== ENCOUNTER → 2019-10-08 08:40 | Outpatient (CLI) | payer OTHER, SELFPAY ==
[2019-08-24 08:37] VITALS: BMI 26.9
[2019-10-08 10:26] LABS: Hematocrit 47.7 % (40-54); Hemoglobin 15.6 g/dL (13.0-16.5); Mean Corp Hgb Conc 32.7 g/dL (32-36); Mean Corpuscular Hgb 27.5 pg (27.0-32.0); Mean Corpuscular Volume 84.1 fL (80-94); Mean Platelet Vol. 10.9 fl (6.2-12.0); Platelet Count 211 K/mm3 (150-450); RBC Distribution Width CV 15.2 % (11.6-14.6); RBC Distribution Width SD 46.6 fl (35.1-43.9); Red Blood Count 5.67 M/mm3 (4.6-6.2); White Blood Count 3.8 K/mm3 (4.4-11.0)
[2019-10-08 10:48] LABS: Vitamin B12 527 pg/mL (211-911); Vitamin D,25 Hydroxy 47.7 ng/mL (29.95-100.01)
[2019-10-08 11:31] LABS: ALB/GLOB Ratio 1.1 RATIO (0.9-2.4); AST(SGOT) 24 U/L (15-37); Alanine Aminotransfer ALT/SGPT 47 U/L (16-61); Albumin, Serum 3.8 g/dL (3.2-5.0); Alkaline Phosphatase 76 U/L (45-117); Anion Gap 3 (5-15); BUN 16 mg/dL (7-18); BUN/Creat Ratio 13.8 RATIO (10-20); Calcium,Total 8.7 mg/dL (8.5-10.1); Chloride 104 mmol/L (98-107); Cholesterol 199 mg/dL (200); Creatinine, Serum 1.16 mg/dL (0.70-1.30); EST Glomerular Filtration Rate 73 mL/min (>60); Est Glom Filt Rate - Afr Amer 89 mL/min (>60); Estradiol 41.8 pg/mL; Globulin 3.6 g/dL (2.2-4.2); Glucose 91 mg/dL (74-106); High Density Lipoprotein 74 mg/dL; Potassium 4.2 mmol/L (3.5-5.1); Protein, Total 7.4 g/dL (6.4-8.2); Sodium Level 139 mmol/L (136-145); Triglycerides 54 mg/dL; Very Low Density Lipoprotein 11 mg/dL (5-40)
[2019-10-11 09:07] LABS: Testosterone, % Free 3.04 % (1.50-4.20); Testosterone, Free 24.29 ng/dL (5.00-21.00)
[2019-10-11 11:34] LABS: DHEA Sulfate 239.4 ug/dL (102.6-416.3); Testosterone, Total 799 ng/dL (264-916)
== END ==
PROVIDERS: PCP Family Medicine; Referring Provider Nurse Practitioner Family; Visit Provider Nurse Practitioner Family
DX: M62.81 Muscle weakness (generalized) (principal); R53.82 Chronic fatigue, unspecified
CPT/HCPCS: 36415; 80053; 80061; 82306; 82607; 82627; 82670; 82746; 84402; 84403; 85027; 82626

== ENCOUNTER → 2019-12-13 09:12 | Outpatient (CLI) | payer OTHER, SELFPAY ==
[2019-11-17 10:21] VITALS: BMI 27.9
[2019-12-13 10:05] LABS: Hematocrit 43.3 % (40-54); Hemoglobin 14.5 g/dL (13.0-16.5); Mean Corp Hgb Conc 33.5 g/dL (32-36); Mean Corpuscular Hgb 28.4 pg (27.0-32.0); Mean Corpuscular Volume 84.7 fL (80-94); Mean Platelet Vol. 10.6 fl (6.2-12.0); Platelet Count 190 K/mm3 (150-450); RBC Distribution Width SD 43.6 fl (35.1-43.9); Red Blood Count 5.11 M/mm3 (4.6-6.2); White Blood Count 3.8 K/mm3 (4.4-11.0)
[2019-12-13 10:32] LABS: Progesterone Level 0.47 ng/mL (See Comment); Vitamin B12 535 pg/mL (211-911); Vitamin D,25 Hydroxy 49.3 ng/mL
[2019-12-13 11:43] LABS: ALB/GLOB Ratio 1.3 RATIO (0.9-2.4); AST(SGOT) 29 U/L (15-37); Alanine Aminotransfer ALT/SGPT 42 U/L (16-61); Albumin, Serum 3.8 g/dL (3.2-5.0); Alkaline Phosphatase 65 U/L (45-117); Anion Gap 3 (5-15); BUN 15 mg/dL (7-18); Calcium,Total 8.6 mg/dL (8.5-10.1); Chloride 104 mmol/L (98-107); Cholesterol 181 mg/dL (200); Creatinine, Serum 1.07 mg/dL (0.70-1.30); EST Glomerular Filtration Rate 81 mL/min (>60); Est Glom Filt Rate - Afr Amer 97 mL/min (>60); Glucose 95 mg/dL (74-106); High Density Lipoprotein 70 mg/dL; Protein, Total 6.8 g/dL (6.4-8.2); Sodium Level 138 mmol/L (136-145); Triglycerides 44 mg/dL; Very Low Density Lipoprotein 9 mg/dL (5-40)
[2019-12-16 09:07] LABS: Testosterone, % Free 2.88 % (1.50-4.20); Testosterone, Free 18.37 ng/dL (5.00-21.00)
[2019-12-16 13:08] LABS: DHEA Sulfate 228.3 ug/dL (102.6-416.3); Testosterone, Total 638 ng/dL (264-916)
== END ==
PROVIDERS: PCP Family Medicine; Referring Provider Nurse Practitioner Family; Visit Provider Nurse Practitioner Family
DX: M62.81 Muscle weakness (generalized) (principal); E66.9 Obesity, unspecified; R53.82 Chronic fatigue, unspecified; R68.82 Decreased libido
CPT/HCPCS: 36415; 80053; 80061; 82306; 82607; 82627; 82670; 82746; 84144; 84402; 84403; 85027; 82626

== ENCOUNTER → 2020-03-06 07:06 | Outpatient (CLI) | payer OTHER, SELFPAY ==
[2020-02-08 15:03] VITALS: BMI 27.3
[2020-03-06 07:49] LABS: Hematocrit 46.8 % (40-54); Hemoglobin 15.8 g/dL (13.0-16.5); Mean Corp Hgb Conc 33.8 g/dL (32-36); Mean Corpuscular Hgb 29.6 pg (27.0-32.0); Mean Corpuscular Volume 87.8 fL (80-94); Platelet Count 208 K/mm3 (150-450); RBC Distribution Width CV 12.9 % (11.6-14.6); RBC Distribution Width SD 40.8 fl (35.1-43.9); Red Blood Count 5.33 M/mm3 (4.6-6.2); White Blood Count 4.7 K/mm3 (4.4-11.0)
[2020-03-06 08:07] LABS: Hemoglobin A1c 5.2 % (3.8-5.6)
[2020-03-06 08:22] LABS: Progesterone Level 0.61 ng/mL (See Comment); Vitamin B12 475 pg/mL (211-911); Vitamin D,25 Hydroxy 72.2 ng/mL
[2020-03-06 08:43] LABS: ALB/GLOB Ratio 1.2 RATIO (0.9-2.4); AST(SGOT) 22 U/L (15-37); Alanine Aminotransfer ALT/SGPT 32 U/L (16-61); Albumin, Serum 3.8 g/dL (3.2-5.0); Alkaline Phosphatase 66 U/L (45-117); Anion Gap 5 (5-15); BUN 18 mg/dL (7-18); BUN/Creat Ratio 15.4 RATIO (10-20); Calcium,Total 8.5 mg/dL (8.5-10.1); Chloride 103 mmol/L (98-107); Cholesterol 174 mg/dL (200); Creatinine, Serum 1.17 mg/dL (0.70-1.30); EST Glomerular Filtration Rate 73 mL/min (>60); Est Glom Filt Rate - Afr Amer 88 mL/min (>60); Estradiol 37.7 pg/mL; Globulin 3.3 g/dL (2.2-4.2); Glucose 98 mg/dL (74-106); High Density Lipoprotein 66 mg/dL; PSA,Total - Annual Screen 1.74 ng/mL (0.00-4.00); Potassium 3.9 mmol/L (3.5-5.1); Protein, Total 7.1 g/dL (6.4-8.2); Sodium Level 139 mmol/L (136-145); Triglycerides 54 mg/dL; Very Low Density Lipoprotein 11 mg/dL (5-40)
[2020-03-10 12:08] LABS: Testosterone, Free 27.12 ng/dL (5.00-21.00)
[2020-03-10 21:15] LABS: Testosterone, Total 904 ng/dL (264-916)
== END ==
PROVIDERS: PCP Family Medicine; Referring Provider Nurse Practitioner Family; Visit Provider Nurse Practitioner Family
DX: R53.82 Chronic fatigue, unspecified (principal); M62.81 Muscle weakness (generalized); R68.82 Decreased libido
CPT/HCPCS: 36415; 80053; 80061; 82306; 82607; 82627; 82670; 82746; 83036; 84144; 84153; 84402; 84403; 85027; 82626; G0103

== ENCOUNTER 2020-08-07 11:19 | Emergency (ER) | payer OTHER, SELFPAY ==
[2020-02-08 15:03] VITALS: BMI 27.3
[2020-08-07 11:20] VITALS: BP 155/121; PULSE 112; RESP 18; TEMP 39.2; O2SAT 96; BMI 26.4
--- NOTE | 2020-08-07 11:46 | EKG12_ITS ---
Test Reason : Blood Pressure : / mmHG Vent. Rate : 104 BPM Atrial Rate : 104 BPM P-R Int : 172 ms QRS Dur : 100 ms QT Int : 322 ms P-R-T Axes : 042 014 018 degrees QTc Int : 423 ms Sinus tachycardia Otherwise normal ECG Confirmed by MYA CAMARGO, JACEK ([id number]), online content editor TREE CHEEK ([id number]) on 08/09/2020 12:55:31 PM Referred By: BB Confirmed By:JACEK ROQUE MD
--- NOTE | 2020-08-07 11:46 | RAD_ITS ---
STUDY: X-RAY CHEST REASON FOR EXAM: Male, 44 years old. COVID X 12 DAYS, SOB, FEVER, FATIGUE TECHNIQUE: Single AP portable view of the chest. COMPARISON: Comparison is made with prior study dated 11/06/2018. FINDINGS: There is evidence of patchy infiltrates in the medial aspect of the left upper lobe as well as in the right upper lobe and right lower lobe. There is no demonstrated pleural abnormality. Normal size heart. Normal mediastinum and vishnu. Normal visualized pulmonary arteries. Normal visualized aortic arch and descending thoracic aorta. Normal visualized thoracic spine. Normal visualized ribs, clavicles, and shoulders. There is no demonstrated abnormality of the visualized soft tissue structures of the upper abdomen. RAD/Chest 1 View (Portable) IMPRESSION: Bilateral patchy infiltrates. Electronically Signed: Heraclio Prince, at 12:27 EST , Service support ,
--- NOTE | 2020-08-07 11:48 | ED.DCSUM_ITS ---
History of Present Illness Chief Complaint: Chest Pain Informant: Patient Onset: Days - 1-2 Context: Gradual Onset Timing: Continuous Quality: pain Location: substernal, no radiation Current Severity: Mild Maximum Severity: Moderate Worsened by: exertion Relieved by: rest Associated Symptoms: cough, malaise/fatigue, ANGULO, fever/chills/myalgias Narrative: Patient has had a positive Covid test, symptoms for about 10 days. Since yesterday he has started having chest pains and dyspnea with exertion, better with rest. He is feeling more tired and fever seem to be worse. This is his first visit to a care provider, but states that a local dried yeast supervisor is a friend of his and put him on a azithromycin and prednisone recently. He has not been on any oxygen and is healthy, he is a runner and recently did a 25K race without any difficulty before he was ill. - Past Medical History (1) Essential (primary) hypertension Status: Chronic Past Medical History - Allergies and Home Meds Allergies/Adverse Reactions: Allergies Sulfa (Sulfonamide Antibiotics) Allergy (Verified 08/07/20 11:22) Unknown Primary Care Physician: Kenn Mcdonough MD [Primary Care Provider] - Lives: Spouse/ Significant Other - Also recently with COVID-19 Smoking Status: Never smoker - Family History Maternal Family History: Family History (Last Reviewed 02/08/20 @ 16:[address] Gray Kim MD) Mother Thyroid disorder Family History: Reports: - - His mother had thyroid disease and had a thyroidectomy. Paternal Family History: Family History (Last Reviewed 02/08/20 @ 16:[address] Gray Kim MD) Mother Thyroid disorder Family History: Reports: - - His grandfather at the age of 48-50 in his sleep; cause of was unknown. Review of Systems General: Reports: Chills, Fever. Denies: Sweats Eyes: Denies: Visual changes - bilaterally, Diplopia ENT: Denies: Bilateral ear pain, Rhinorrhea, Sore throat Cardiovascular: Reports: Chest pain. Denies: Palpitations Respiratory: Reports: Cough, Dyspnea on exertion. Denies: Sputum Gastrointestinal: Denies: Abdominal pain, Nausea, Vomiting, Diarrhea, Melena, Hematochezia Genitourinary: Denies: Dysuria, Hematuria, Frequency Musculoskeletal: Reports: Myalgias. Denies: Back pain, Swelling Skin: Denies: Rash, Wounds Neurological: Reports: Headache - Intermittent. Denies: Weakness, Numbness Physical Exam Vital Signs/Narrative: Vital Signs Temp Pulse Resp BP Pulse Ox 08/07/20 11:20 102.6 F H 112 H 18 155/121 H 96 Inital Vital Signs reviewed: Yes General: Well nourished, Well developed, No Acute Distress Head: Normocephalic, Atraumatic Eyes: Perrl, EOMI ENT: Moist mucous membranes, No rhinorrhea Neck: Supple, Nontender Cardiovascular: Regular rate, Regular rhythm, No murmurs, Tachycardia Respiratory: No distress, CTA bilaterally, Chest nontender Abdomen: Soft, Nontender, Nondistended, Normal bowel sounds Back: Nontender, Normal Inspection Extremities: Nontender, No edema. Negative for: Calf Tenderness Skin: Normal color, No rash, No Trauma Neurological: Alert, Oriented x3, Cranial nerves II-XII grossly intact, Normal Strength, Normal Sensation Psychological: Normal affect, Normal Mood Diagnostic/Tx/Re-eval Chest X-Ray - ED: 1 View, Read by ED Physician, Right Infiltrate, Left Infiltrate Impressions Chest X-Ray 08/07/20 11:46 IMPRESSION: Bilateral patchy infiltrates. Electronically Signed: Heraclio Suresh, at 12:27 EST , Service support , 08/07/20 11:46 Chest 1 View (Portable) [RAD] Stat Laboratory Results 08/07/20 08/07/20 08/07/20 12:30 12:30 12:30 WBC 5.6 RBC 5.21 Hgb 14.3 Hct 42.9 MCV 82.3 MCH 27.4 MCHC 33.3 RDW Std Deviation 38.3 RDW Coeff of Bouchra 12.6 Plt Count 192 MPV 10.0 Immature Gran % (Auto) 0.500 Neut % (Auto) 83.9 H Lymph % (Auto) 8.8 L [place] % (Auto) 6.8 Eos % (Auto) 0.0 Baso % (Auto) 0.0 Absolute Neuts (auto) 4.7 Absolute Lymphs (auto) 0.49 L Nucleated RBC % 0 D-Dimer Quant (PE/DVT) 0.44 Sodium 139 Potassium 3.8 Chloride 105 Carbon Dioxide 30.0 Anion Gap 4 L BUN 15 Creatinine 1.10 Estim Creat Clear Calc 96.02 Est GFR (MDRD) Af Amer 94 Est GFR (MDRD) Non-Af 78 BUN/Creatinine Ratio 13.6 Glucose 105 Calcium 8.2 L - Rhythm Strip Rhythm Strip: Sinus Tach Rate: 110 Ectopy: None - EKG Initial EKG Interpretation: No Acute Injury Pattern, Sinus Tachycardia - Medical Decision Making Patient was given acetaminophen for fever control and something to drink at his request. He was doing better. We ambulated him, he did not go below 93% on room air and does not meet requirements for home oxygen at this time. His vital signs are stable and his tachycardia resolved. He does have Covid pneumonia, he has already started prednisone and does not require oxygen, so I would advise that he continue the prednisone until completed, as well as the azithromycin, obtain a pulse oximeter, and isolate/quarantine himself at home. We discussed reasons to return, including sustained hypoxemia. He was given a chance to ask questions and is comfortable with this overall plan. ED Disposition - Plan for ED Patient: Disposition: Home or Assisted Living Diagnosis: Pneumonia due to COVID-19 virus Instructions: Coronavirus Disease 2019 (COVID-19): Overview, Coronavirus Disease 2019 (COVID-19): Caring for Yourself or Others Referrals: Kenn Mcdonough MD [Primary Care Provider] - 1 Week if not improving Additional Instructions: If worse or having pulse oximetry dropped below 90% sustained, return to the hospital for evaluation. Take and finish your Z-Lucio and prednisone as prescribed until finished.
[2020-08-07] MEDS: Acetaminophen 500 MG Tablet 1000 MG PO (12:24)
[2020-08-07 12:57] LABS: Absolute Lymphocyte Count 0.49 X10^3/uL (0.83-4.51); Absolute Neutrophil Count 4.7 X10^3/uL (2.0-7.7); Hematocrit 42.9 % (40-54); Hemoglobin 14.3 g/dL (13.0-16.5); Lymphocyte # 0.49 X10^3/ul (4.0); Lymphocyte % 8.8 % (19-41); Mean Corp Hgb Conc 33.3 g/dL (32-36); Mean Corpuscular Hgb 27.4 pg (27.0-32.0); Mean Corpuscular Volume 82.3 fL (80-94); Monocyte# 0.38 X10^3/uL; Monocyte% 6.8 % (0-10); NRBC Flagged by Analyzer 0 % (0-5); Neutrophil # 4.66 X10^3/uL (2.7-7.7); Neutrophil % 83.9 % (47-70); POSITIVE DIFFERENTIAL YES; Platelet Count 192 K/mm3 (150-450); RBC Distribution Width CV 12.6 % (11.6-14.6); RBC Distribution Width SD 38.3 fl (35.1-43.9); Red Blood Count 5.21 M/mm3 (4.6-6.2); White Blood Count 5.6 K/mm3 (4.4-11.0)
[2020-08-07 13:01] LABS: Differential Indicated SCAN CRITERIA MET
[2020-08-07 13:08] LABS: Anion Gap 4 (5-15); BUN 15 mg/dL (7-18); BUN/Creat Ratio 13.6 RATIO (10-20); Calcium,Total 8.2 mg/dL (8.5-10.1); Chloride 105 mmol/L (98-107); EST Glomerular Filtration Rate 78 mL/min (>60); Est Glom Filt Rate - Afr Amer 94 mL/min (>60); Estimated Creatinine Clearance 96.02 ml/min; Glucose 105 mg/dL (74-106); Potassium 3.8 mmol/L (3.5-5.1); Sodium Level 139 mmol/L (136-145)
[2020-08-07 13:16] LABS: D-Dimer Quantitative (DVT/PE) 0.44 FEU/ug/m (0.27-0.49)
[2020-08-07 13:23] VITALS: BP 134/77; PULSE 99; RESP 18; O2SAT 94
[2020-08-07 14:23] VITALS: BP 135/78; PULSE 93; RESP 18; O2SAT 94
== END 2020-08-07 14:31 | disposition home or self-care (01) ==
PROVIDERS: Emergency Provider Emergency Medicine; PCP Family Medicine
DX: U07.1 COVID-19 (principal); J12.89 Other viral pneumonia; I10 Essential (primary) hypertension
CPT/HCPCS: 71045; 80048; 85025; 85379; 93005; 99284

== ENCOUNTER → 2020-08-15 08:21 | Outpatient (CLI) | payer OTHER, SELFPAY ==
[2020-08-07 11:20] VITALS: BMI 26.4
[2020-08-15 08:44] LABS: Hematocrit 45.9 % (40-54); Hemoglobin 15.5 g/dL (13.0-16.5); Mean Corp Hgb Conc 33.8 g/dL (32-36); Mean Corpuscular Hgb 28.1 pg (27.0-32.0); Mean Corpuscular Volume 83.2 fL (80-94); Mean Platelet Vol. 9.1 fl (6.2-12.0); Platelet Count 382 K/mm3 (150-450); Red Blood Count 5.52 M/mm3 (4.6-6.2); White Blood Count 7.3 K/mm3 (4.4-11.0)
[2020-08-15 09:11] LABS: Hemoglobin A1c 5.8 % (3.8-5.6)
[2020-08-15 09:19] LABS: Homocysteine 7.4 umol/L (3.2-10.7); Progesterone Level 0.34 ng/mL (See Comment); Vitamin B12 870 pg/mL (211-911); Vitamin D,25 Hydroxy 60.3 ng/mL
[2020-08-15 10:00] LABS: CRP 5.86 mg/L (0.0-3.0); Cholesterol 199 mg/dL (200); Estradiol < 11.0 pg/mL; Follicle Stimulating Hormone 0.3 mIU/mL; High Density Lipoprotein 50 mg/dL; Iron 144 ug/dL (65-175); Luteinizing Hormone < 0.2 mIU/mL; Magnesium 2.3 mg/dL (1.6-2.6); Prolactin 14.1 ng/mL; T4 Total, Thyroxin 9.9 ug/dL (4.5-12.1); Triglycerides 155 mg/dL; Very Low Density Lipoprotein 31 mg/dL (5-40)
[2020-08-18 20:08] LABS: DHEA Sulfate 89.8 ug/dL (102.6-416.3); Insulin Like Growth Factor 185 ng/mL (84-270); Testosterone, % Free 3.87 % (1.50-4.20)
[2020-08-18 20:37] LABS: Sex Hormone-binding Globulin 30.7 nmol/L (16.5-55.9); Testosterone, Total 292 ng/dL (264-916)
== END ==
PROVIDERS: PCP Family Medicine; Referring Provider Nurse Practitioner Family; Visit Provider Nurse Practitioner Family
DX: R53.82 Chronic fatigue, unspecified (principal); M62.81 Muscle weakness (generalized); R68.82 Decreased libido; E66.9 Obesity, unspecified
CPT/HCPCS: 36415; 80061; 82306; 82533; 82607; 82627; 82670; 82746; 83001; 83002; 83036; 83090; 83540; 83735; 84144; 84146; 84270; 84305; 84402; 84403; 84436; 85027; 86140; 82626

== ENCOUNTER → 2021-01-05 10:49 | Outpatient (CLI) | payer OTHER, SELFPAY ==
[2021-01-05 11:17] LABS: Hematocrit 45.3 % (40-54); Mean Corp Hgb Conc 33.1 g/dL (32-36); Mean Corpuscular Hgb 28.2 pg (27.0-32.0); Mean Corpuscular Volume 85.2 fL (80-94); Mean Platelet Vol. 10.9 fl (6.2-12.0); Platelet Count 224 K/mm3 (150-450); RBC Distribution Width CV 13.1 % (11.6-14.6); Red Blood Count 5.32 M/mm3 (4.6-6.2); White Blood Count 3.2 K/mm3 (4.4-11.0)
[2021-01-05 11:51] LABS: Hemoglobin A1c 5.3 % (3.8-5.6)
[2021-01-05 11:53] LABS: Progesterone Level 0.63 ng/mL (See Comment); T3 Total - Triiodothyronine 1.02 ng/mL (0.6-1.81); Vitamin B12 1806 pg/mL (211-911); Vitamin D,25 Hydroxy 84.8 ng/mL
[2021-01-05 11:59] LABS: Homocysteine 6.4 umol/L (3.2-10.7)
[2021-01-05 14:02] LABS: ALB/GLOB Ratio 1.3 RATIO (0.9-2.4); AST(SGOT) 15 U/L (15-37); Alanine Aminotransfer ALT/SGPT 27 U/L (16-61); Albumin, Serum 3.9 g/dL (3.2-5.0); Alkaline Phosphatase 57 U/L (45-117); Anion Gap 3 (5-15); BUN 12 mg/dL (7-18); CRP < 2.90 mg/L (0.0-3.0); Calcium,Total 8.9 mg/dL (8.5-10.1); Chloride 105 mmol/L (98-107); Cholesterol 163 mg/dL (200); Creatinine, Serum 1.09 mg/dL (0.70-1.30); EST Glomerular Filtration Rate 78 mL/min (>60); Est Glom Filt Rate - Afr Amer 95 mL/min (>60); Estradiol 34.2 pg/mL; Follicle Stimulating Hormone < 0.2 mIU/mL; Globulin 2.9 g/dL (2.2-4.2); Glucose 87 mg/dL (74-106); High Density Lipoprotein 68 mg/dL; Iron 45 ug/dL (65-175); Luteinizing Hormone < 0.2 mIU/mL; Magnesium 1.9 mg/dL (1.6-2.6); Potassium 3.8 mmol/L (3.5-5.1); Prolactin 9.3 ng/mL; Protein, Total 6.8 g/dL (6.4-8.2); Sodium Level 140 mmol/L (136-145); T4 Free Direct 1.09 ng/dL (0.76-1.46); T4 Total, Thyroxin 6.8 ug/dL (4.5-12.1); Thyroid Stim Hormone (TSH) 0.25 uIU/mL (0.358-3.74); Triglycerides 42 mg/dL; Very Low Density Lipoprotein 8 mg/dL (5-40)
[2021-01-09 14:09] LABS: Insulin Like Growth Factor 157 ng/mL (84-270); Testosterone, % Free 4.12 % (1.50-4.20); Testosterone, Free 28.72 ng/dL (5.00-21.00)
[2021-01-09 15:05] LABS: Sex Hormone-binding Globulin 37.6 nmol/L (16.5-55.9); Testosterone, Total 697 ng/dL (264-916)
== END ==
PROVIDERS: PCP Family Medicine; Referring Provider Nurse Practitioner Family; Visit Provider Nurse Practitioner Family
DX: R53.82 Chronic fatigue, unspecified (principal); M62.81 Muscle weakness (generalized); R68.82 Decreased libido; E29.1 Testicular hypofunction
CPT/HCPCS: 36415; 80053; 80061; 82306; 82533; 82607; 82627; 82670; 82746; 83001; 83002; 83036; 83090; 83540; 83735; 84144; 84146; 84270; 84305; 84402; 84403; 84436; 84439; 84443; 84480; 85027; 86140; 82626

== ENCOUNTER → 2021-02-20 12:54 | Outpatient (CLI) | payer OTHER, SELFPAY ==
[2021-02-13 12:55] VITALS: BMI 26.7
== END ==
PROVIDERS: PCP Family Medicine; Referring Provider Internal Medicine Cardiovascular Disease; Visit Provider Internal Medicine Cardiovascular Disease
DX: I10 Essential (primary) hypertension (principal)
CPT/HCPCS: 93788

== ENCOUNTER → 2021-02-22 08:09 | Outpatient (CLI) | payer OTHER, SELFPAY ==
[2021-02-13 12:55] VITALS: BMI 26.7
--- NOTE | 2021-02-22 08:10 | ECHOD_ITS ---
Reason For Study: HTN, CP Procedure This was a 2D Doppler, Color Flow transthoracic echocardiogram. Myocardial strain analysis was performed in this exam to aid in the assessment of cardiac function. Exam performed in department. Left Ventricle Normal LV size. Left ventricular systolic function is normal. The estimated ejection fraction is 55 %. Stage 2 diastolic dysfunction. No regional wall motion abnormalities noted. Right Ventricle Normal RV size. Normal systolic function. Atria Normal left atrium. Normal right atrium. Mitral Valve Normal mitral valve. Mild (1+) eccentric mitral valve insufficiency. Tricuspid Valve Normal tricuspid valve. Mild tricuspid valve insufficiency. Pulmonary artery systolic pressure is 28 mmHg. Aortic Valve Normal aortic valve. Trisinus/trileaflet aortic valve. Pulmonic Valve Normal pulmonic valve. Great Vessels Normal aortic root. The pulmonary artery is normal size. Normal inferior vena cava. Pericardium/Pleural No pericardial effusion. MMode/2D Measurements & Calculations LVIDd: 5.6 cm IVSd: 1.0 cm Ao root diam: 3.5 cm LVIDs: 3.6 cm LVPWd: 1.0 cm RVDd: 3.2 cm FS: 35.4 % LAV(MOD-bp): 89.3 ml EDV(MOD-sp4): 181.6 ml EDV(MOD-sp2): 162.9 ml LAV(MOD-bp) Indexed: 42.2 ml/m2 ESV(MOD-sp4): 86.5 ml ESV(MOD-sp2): 71.5 ml LAV(MOD-sp2): 89.0 ml EF(MOD-sp4): 52.4 % EF(MOD-sp2): 56.1 % LAV(MOD-sp4): 75.6 ml SV(MOD-sp4): 95.1 ml SV(MOD-sp2): 91.4 ml LA A4 area: 24.8 cm2 LA dimension(2D): 4.1 cm RA A4 area: 18.9 cm2 Doppler Measurements & Calculations MV E max duke: 78.2 cm/sec Lat Peak E' Duke: 16.8 cm/sec Med Peak E' Duke: 10.2 cm/sec MV A max duke: 39.7 cm/sec E/E' lat: 4.7 E/E' med: 7.7 MV E/A: 2.0 Ao V2 max: 120.9 cm/sec LV V1 max: 99.6 cm/sec PA V2 max: 80.9 cm/sec Ao max P.8 mmHg LV V1 max P.0 mmHg TR max duke: 241.6 cm/sec TR max P.4 mmHg ECHO/Echo Complete Interpretation Summary Normal LV size. Left ventricular systolic function is normal. The estimated ejection fraction is 55 %. Pulmonary artery systolic pressure is 28 mmHg. Stage 2 diastolic dysfunction. The global longitudinal strain is normal. The global longitudinal strain = -17. 7 % (normal). Ordering Physician: Gray Kim Referring Physician: Kenn Mcdonough Performed By: Kamila Martinez RDCS
== END ==
PROVIDERS: PCP Family Medicine; Referring Provider Internal Medicine Cardiovascular Disease; Visit Provider Internal Medicine Cardiovascular Disease
DX: I10 Essential (primary) hypertension (principal); R07.9 Chest pain, unspecified
CPT/HCPCS: 93306

== ENCOUNTER → 2021-07-31 08:37 | Outpatient (CLI) | payer OTHER, SELFPAY ==
[2021-07-31 12:18] LABS: Hematocrit 42.6 % (40-54); Hemoglobin 14.2 g/dL (13.0-16.5); Mean Corp Hgb Conc 33.3 g/dL (32-36); Mean Corpuscular Hgb 28.6 pg (27.0-32.0); Mean Corpuscular Volume 85.7 fL (80-94); Mean Platelet Vol. 10.9 fl (6.2-12.0); Platelet Count 193 K/mm3 (150-450); RBC Distribution Width CV 13.3 % (11.6-14.6); RBC Distribution Width SD 41.6 fl (35.1-43.9); Red Blood Count 4.97 M/mm3 (4.6-6.2); White Blood Count 3.7 K/mm3 (4.4-11.0)
[2021-07-31 12:40] LABS: Homocysteine 6.4 umol/L (3.2-10.7)
[2021-07-31 12:43] LABS: Hemoglobin A1c 5.1 % (3.8-5.6)
[2021-07-31 12:51] LABS: Progesterone Level 0.36 ng/mL (See Comment); T3 Total - Triiodothyronine 1.14 ng/mL (0.6-1.81); Vitamin B12 520 pg/mL (211-911); Vitamin D,25 Hydroxy 61.5 ng/mL
[2021-07-31 13:12] LABS: ALB/GLOB Ratio 1.2 RATIO (0.9-2.4); AST(SGOT) 21 U/L (15-37); Alanine Aminotransfer ALT/SGPT 46 U/L (16-61); Albumin, Serum 3.8 g/dL (3.2-5.0); Alkaline Phosphatase 84 U/L (45-117); Anion Gap 5 (5-15); BUN 15 mg/dL (7-18); BUN/Creat Ratio 15.8 RATIO (10-20); CRP, High Sensitivity Cardiac 2.92 mg/L; Calcium,Total 9.2 mg/dL (8.5-10.1); Chloride 106 mmol/L (98-107); Cholesterol 195 mg/dL (200); Creatinine, Serum 0.95 mg/dL (0.70-1.30); EST Glomerular Filtration Rate 91 mL/min (>60); Est Glom Filt Rate - Afr Amer 111 mL/min (>60); Estradiol 19.6 pg/mL; Follicle Stimulating Hormone < 0.2 mIU/mL; Globulin 3.2 g/dL (2.2-4.2); Glucose 99 mg/dL (74-106); High Density Lipoprotein 76 mg/dL; Iron 99 ug/dL (65-175); Luteinizing Hormone < 0.2 mIU/mL; PSA,Total - Annual Screen 1.44 ng/mL (0.00-4.00); Potassium 4.2 mmol/L (3.5-5.1); Prolactin 6.8 ng/mL; Sodium Level 140 mmol/L (136-145); T4 Total, Thyroxin 8.4 ug/dL (4.5-12.1); Thyroid Stim Hormone (TSH) 0.33 uIU/mL (0.358-3.74); Triglycerides 35 mg/dL; Very Low Density Lipoprotein 7 mg/dL (5-40)
[2021-08-04 11:08] LABS: Insulin Like Growth Factor 170 ng/mL (84-270); Testosterone, % Free 2.11 % (1.50-4.20); Testosterone, Free 10.36 ng/dL (5.00-21.00)
[2021-08-04 14:03] LABS: Sex Hormone-binding Globulin 35.8 nmol/L (16.5-55.9); Testosterone, Total 491 ng/dL (264-916)
== END ==
PROVIDERS: PCP Family Medicine; Referring Provider Nurse Practitioner Family; Visit Provider Nurse Practitioner Family
DX: M62.81 Muscle weakness (generalized) (principal); R68.82 Decreased libido; E29.1 Testicular hypofunction
CPT/HCPCS: 36415; 80053; 80061; 82306; 82533; 82607; 82627; 82670; 82746; 83001; 83002; 83036; 83090; 83540; 83735; 84144; 84146; 84153; 84270; 84305; 84402; 84403; 84436; 84439; 84443; 84480; 85027; 86141; 82626; G0103

== ENCOUNTER → 2021-12-18 | Outpatient (CLI) | payer OTHER, SELFPAY ==
[2021-12-18 10:07] LABS: Hematocrit 43.7 % (40-54); Hemoglobin 14.7 g/dL (13.0-16.5); Mean Corp Hgb Conc 33.6 g/dL (32-36); Mean Corpuscular Hgb 27.8 pg (27.0-32.0); Mean Corpuscular Volume 82.6 fL (80-94); Mean Platelet Vol. 10.8 fl (6.2-12.0); Platelet Count 176 K/mm3 (150-450); RBC Distribution Width CV 13.8 % (11.6-14.6); RBC Distribution Width SD 41.4 fl (35.1-43.9); Red Blood Count 5.29 M/mm3 (4.6-6.2); White Blood Count 4.6 K/mm3 (4.4-11.0)
[2021-12-18 10:27] LABS: Hemoglobin A1c 5.4 % (3.8-5.6)
[2021-12-18 10:32] LABS: Homocysteine 5.7 umol/L (3.2-10.7)
[2021-12-18 10:39] LABS: Progesterone Level 0.24 ng/mL (See Comment); T3 Total - Triiodothyronine 1.01 ng/mL (0.6-1.81); Vitamin B12 737 pg/mL (211-911); Vitamin D,25 Hydroxy 59.3 ng/mL
[2021-12-18 12:17] LABS: ALB/GLOB Ratio 1.2 RATIO (0.9-2.4); AST(SGOT) 20 U/L (15-37); Alanine Aminotransfer ALT/SGPT 43 U/L (16-61); Alkaline Phosphatase 82 U/L (45-117); Anion Gap 4 (5-15); BUN 18 mg/dL (7-18); BUN/Creat Ratio 16.5 RATIO (10-20); CRP, High Sensitivity Cardiac 3.59 mg/L; Calcium,Total 8.9 mg/dL (8.5-10.1); Chloride 103 mmol/L (98-107); Cholesterol 198 mg/dL (200); Creatinine, Serum 1.09 mg/dL (0.70-1.30); EST Glomerular Filtration Rate 78 mL/min (>60); Est Glom Filt Rate - Afr Amer 95 mL/min (>60); Estradiol 41.9 pg/mL; Follicle Stimulating Hormone < 0.2 mIU/mL; Globulin 3.4 g/dL (2.2-4.2); Glucose 83 mg/dL (74-106); High Density Lipoprotein 69 mg/dL; Iron 86 ug/dL (65-175); Luteinizing Hormone < 0.2 mIU/mL; Potassium 3.6 mmol/L (3.5-5.1); Prolactin 8.4 ng/mL; Protein, Total 7.4 g/dL (6.4-8.2); Sodium Level 139 mmol/L (136-145); T4 Free Direct 0.97 ng/dL (0.76-1.46); T4 Total, Thyroxin 8.3 ug/dL (4.5-12.1); Thyroid Stim Hormone (TSH) 0.38 uIU/mL (0.358-3.74); Triglycerides 85 mg/dL; Very Low Density Lipoprotein 17 mg/dL (5-40)
[2021-12-21 11:09] LABS: Insulin Like Growth Factor 171 ng/mL (84-270); Testosterone, % Free 2.49 % (1.50-4.20); Testosterone, Free 20.67 ng/dL (5.00-21.00)
[2021-12-21 16:12] LABS: Sex Hormone-binding Globulin 30.8 nmol/L (16.5-55.9); Testosterone, Total 830 ng/dL (264-916)
== END | disposition home or self-care (01) ==
PROVIDERS: PCP Family Medicine; Referring Provider Nurse Practitioner Family; Visit Provider Nurse Practitioner Family
DX: R53.82 Chronic fatigue, unspecified (principal); R68.82 Decreased libido; E29.1 Testicular hypofunction
CPT/HCPCS: 36415; 80053; 80061; 82306; 82533; 82607; 82627; 82670; 82746; 83001; 83002; 83036; 83090; 83540; 83735; 84144; 84146; 84270; 84305; 84402; 84403; 84436; 84439; 84443; 84480; 85027; 86141; 82626

== ENCOUNTER → 2022-08-01 | Outpatient (CLI) | payer OTHER, SELFPAY ==
[2022-08-01 08:49] LABS: Hematocrit 44.9 % (40-54); Hemoglobin 14.8 g/dL (13.0-16.5); Mean Corpuscular Hgb 27.6 pg (27.0-32.0); Mean Corpuscular Volume 83.6 fL (80-94); Mean Platelet Vol. 10.1 fl (6.2-12.0); Platelet Count 203 K/mm3 (150-450); RBC Distribution Width CV 14.3 % (11.6-14.6); RBC Distribution Width SD 43.4 fl (35.1-43.9); Red Blood Count 5.37 M/mm3 (4.6-6.2); White Blood Count 4.9 K/mm3 (4.4-11.0)
[2022-08-01 09:20] LABS: Progesterone Level 0.38 ng/mL (See Comment); T3 Total - Triiodothyronine 1.05 ng/mL (0.6-1.81); Vitamin B12 620 pg/mL (211-911); Vitamin D,25 Hydroxy 62.5 ng/mL
[2022-08-01 09:31] LABS: Homocysteine 6.8 umol/L (3.2-10.7)
[2022-08-01 09:33] LABS: ALB/GLOB Ratio 1.2 RATIO (0.9-2.4); AST(SGOT) 22 U/L (15-37); Alanine Aminotransfer ALT/SGPT 51 U/L (16-61); Albumin, Serum 3.7 g/dL (3.2-5.0); Alkaline Phosphatase 74 U/L (45-117); Anion Gap 3 (5-15); BUN 18 mg/dL (7-18); CRP < 2.90 mg/L (0.0-3.0); Calcium,Total 8.5 mg/dL (8.5-10.1); Chloride 107 mmol/L (98-107); Cholesterol 180 mg/dL (200); EST Glomerular Filtration Rate 86 mL/min (>60); Est Glom Filt Rate - Afr Amer 104 mL/min (>60); Estradiol 22.8 pg/mL; Follicle Stimulating Hormone < 0.2 mIU/mL; Glucose 100 mg/dL (74-106); High Density Lipoprotein 68 mg/dL; Iron 118 ug/dL (65-175); Luteinizing Hormone < 0.2 mIU/mL; PSA,Total - Annual Screen 2.06 ng/mL (0.00-4.00); Protein, Total 6.7 g/dL (6.4-8.2); Sodium Level 141 mmol/L (136-145); T4 Free Direct 0.94 ng/dL (0.76-1.46); Thyroid Stim Hormone (TSH) 0.72 uIU/mL (0.358-3.74); Triglycerides 47 mg/dL; Very Low Density Lipoprotein 9 mg/dL (5-40)
[2022-08-01 09:45] LABS: Hemoglobin A1c 5.7 % (3.8-5.6)
[2022-08-10 12:08] LABS: Insulin Like Growth Factor 172 ng/mL (84-270); Testosterone, % Free 3.19 % (1.50-4.20); Testosterone, Free 14.99 ng/dL (5.00-21.00)
[2022-08-10 12:53] LABS: Sex Hormone-binding Globulin 26.4 nmol/L (16.5-55.9); Testosterone, Total 470 ng/dL (264-916)
== END | disposition home or self-care (01) ==
PROVIDERS: PCP Family Medicine; Referring Provider Nurse Practitioner Family; Visit Provider Nurse Practitioner Family
DX: R53.82 Chronic fatigue, unspecified (principal); M62.81 Muscle weakness (generalized); R68.82 Decreased libido; E29.1 Testicular hypofunction
CPT/HCPCS: 36415; 80053; 80061; 82306; 82533; 82607; 82627; 82670; 82746; 83001; 83002; 83036; 83090; 83540; 83735; 84144; 84146; 84153; 84270; 84305; 84402; 84403; 84436; 84439; 84443; 84480; 85027; 86140; 82626; G0103

== ENCOUNTER 2022-08-12 11:32 | Emergency (ER) | payer OTHER, SELFPAY ==
[2022-08-12 11:33] VITALS: BP 155/99; PULSE 94; RESP 18; TEMP 37.9; O2SAT 98; BMI 25.7
[2022-08-12] MEDS: Albuterol Sulfate 8 gm Inhaler (60 puffs) 2 PUFF INHALATION (12:26)
[2022-08-12] MEDS: Acetaminophen 325 MG Tablet 650 MG PO (12:27)
--- NOTE | 2022-08-12 12:29 | EDS_ITS ---
HPI <DAVID Mi - Last Filed: 08/12/22 16:03> History of Present Illness Chief Complaint: Fever Narrative Narrative: Patient presents to the ED COVID+ after testing positive this morning. He states yesterday he felt fine and was able to go on a long run in the morning without difficulty and shortly before bed he began to have a bad cough and chest tightness. He states he had COVID badly two years ago that eventually turned into bilateral pneumonia and he had to be on oxygen at night for several weeks due to his oxygen saturation dropping into the mid 80s. Patient states he had a fever of 104 ?F last night. Patient does follow with a concrete block plant supervisor due to how bad his COVID got 2 years ago and said that his concrete block plant supervisor said to contact him the next time he is COVID+ so that he can get on medication. Patient's past medical history includes HTN but he does not have any lung conditions or history of asthma. 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 Obstructive sleep apnea Home Medications amlodipine 5 mg tablet 5 mg PO BID 08/16/21 [History Last Taken Unknown] lisinopril 20 mg tablet See Rx Instructions .Route .COMPLEX #180 tabs 05/23/22 [Rx Last Taken Unknown] albuterol sulfate 90 mcg/actuation aerosol inhaler (Ventolin HFA) 2 puff inhalation Q4H PRN PRN Wheezing #1 inh 08/12/22 [Rx Last Taken Unknown] nirmatrelvir 300 mg (150 mg x2)-ritonavir 100 mg tablet,dose pack(EUA) (Paxlovid) See Rx Instructions PO .COMPLEX #30 tabs 08/12/22 [Rx Last Taken Unknown] Allergy/AdvReac Type Severity Reaction Status Date / Time Sulfa (Sulfonamide Allergy Unknown Verified 08/12/22 11:36 Antibiotics) Family History Mother Thyroid disorder Surgical History history excision melanoma on back History of vasectomy history pilonidal cystectomy s/p Excsion lipoma right chest wall (12/24/17) Social History Smoking Status: Never smoker alcohol intake: current alcohol intake frequency: a few times a month substance use type: does not use caffeine: Yes (Occasional energy drink or pre workout drink) Type: other ROS <DAVID Mi - Last Filed: 08/12/22 16:03> ROS ED Constitutional Constitutional ED: Reports chills, fever(s) and sweats Eyes Eyes: Denies blurry vision, change in vision or diplopia ENT ENT ED: Reports headache(s), nasal congestion and rhinorrhea; Denies ear pain or sore throat Cardiovascular Cardiovascular: Denies chest pain, orthopnea, palpitations or racing heartbeat Respiratory/Chest Respiratory/Chest: Reports cough; Denies dyspnea, dyspnea on exertion, orthopnea, stridor, tachypnea or wheezing Gastrointestinal Gastrointestinal: Denies abdominal pain, diarrhea, nausea or vomiting Genitourinary Genitourinary ED: Denies dysuria, hematuria or urinary frequency Musculoskeletal Musculoskeletal: Denies arthralgias, myalgias or neck pain Integumentary Denies abscess, Abrasions or rash Neurologic Neurologic: Reports headache(s); Denies paresthesias or weakness Psychiatric Psychiatric: Denies anxiety, depression or suicidal ideation EXAM <DAVID Mi - Last Filed: 08/12/22 16:03> Physical Exam Const Vital Signs: 08/12/22 11:33 08/12/22 13:08 08/12/22 13:09 Temperature 100.3 F H Temperature Source Temporal Pulse Rate 94 Respiratory Rate 18 Respiratory Effort Non-Labored Short of Breath Respiratory Depth Normal Respiratory Pattern Normal Blood Pressure 155/99 H Blood Pressure Mean 117 Pulse Ox 98 97 Oxygen Delivery Method Room Air Room Air Positive well nourished and well developed General Appearance ED: well developed and NAD HEENT Reports TM's clear and moist mucous membranes Negative for trauma or tenderness Tympanic Membrane ED: Yes TM's clear Eyes PERRL and EOMs intact bilaterally Neck no lymphadenopathy and supple General: Negative for tenderness Chest Wall inspection of chest normal and palpation of chest normal Resp normal respiratory effort and no use of accessory muscles Effort and Inspection: Negative for respiratory distress Auscultation: crackles bilateral Cardio regular rate, regular rhythm and no murmurs GI non-tender, non-distended and no masses Palpation: soft Back/Spine Cervical Spine: Negative for cervical spine tenderness Thoracic Spine / Upper Back: Negative for thoracic spinal tenderness Lumbar Spine / Lower Back: Negative for lumbar spinal tenderness Extremity normal to inspection General Extremety ED: Negative for edema General Extremity: Negative for edema Neuro oriented x3, CN's II-XII intact bilaterally and no sensory deficits noted Sensorium / Orientation: alert Motor Exam: strength 5/5 throughout Psych mental status grossly normal Skin no rashes or lesions noted, no wounds and skin turgor normal <Dr. Rafael Bullock, - Last Filed: 08/12/22 13:36> Physical Exam Const Vital Signs: 08/12/22 11:33 08/12/22 13:08 08/12/22 13:09 Temperature 100.3 F H Temperature Source Temporal Pulse Rate 94 Respiratory Rate 18 Respiratory Effort Non-Labored Short of Breath Respiratory Depth Normal Respiratory Pattern Normal Blood Pressure 155/99 H Blood Pressure Mean 117 Pulse Ox 98 97 Oxygen Delivery Method Room Air Room Air [facility] <DAVID Mi - Last Filed: 08/12/22 16:03> [facility] Narrative Medical decision making narrative: Patient was given a dose of albuterol inhalation here. Patient was given Tylenol for fever control. Paxlovid has been sent to his pharmacy due to his history of being very ill from COVID in the past. I have also sent him a prescription for an albuterol inhaler because he said that really helped him when he had COVID before. I have educated him on supportive care measures such as alternating between ibuprofen and acetaminophen for fever control. Patient's O2 sat has remained at 98% here in the ED. I am comfortable with patient discharging home. I have encouraged him to follow-up with his concrete block plant supervisor. I have given him return instructions and patient is comfortable with plan. <Dr. Rafael Bullock DO - Last Filed: 08/12/22 13:36> [facility] Treatment and Re-Evaluation Narrative: I performed a history and physical examination of the patient and discussed management plan with the physician assistant pressman. I reviewed the physician assistant pressman's note and agree with the documented findings and plan of care. Patient with a history of severe COVID 2 years ago. He tested positive this morning after developing symptoms last night. Noted to be 98% on room air. His lung sounds are clear and he is not having any conversational dyspnea. He is interested in Paxlovid. He has been using his inhaler. Rafael Bullock DO, MS Discharge Plan Triage Chief Complaint: Fever Other Complaint: Cough Shortness of Breath ED Midlevel Provider: Ryanne Singer ED Provider: Rafael Bullock Dx/Rx/DC Orders Clinical Impression: COVID-19 Instructions: Caring for Someone Who Has COVID-19 Prescriptions: New Paxlovid (EUA) 300 mg (150 mg x 2)-100 mg tablets,dose pack See Rx Instructions .ROUTE .COMPLEX Qty: 30 0RF Rx Instructions: take TWO 150 mg tablets of nirmatrelvir with ONE 100 mg tablet of ritonavir twice daily for 5 days albuterol sulfate [Ventolin HFA] 90 mcg/actuation HFA aerosol inhaler 2 puff inhalation Q4H PRN PRN (Reason: Wheezing) Qty: 1 0RF No Action amlodipine 5 mg tablet 5 mg PO BID lisinopril 20 mg tablet See Rx Instructions .ROUTE .COMPLEX Qty: 180 3RF Hold Instructions: low bp Dose Instruction: TAKE 1 TABLET BY MOUTH TWICE A DAY Rx Instructions: TAKE 1 TABLET BY MOUTH TWICE A DAY Primary Care Provider: Kenn Mcdonough Referrals: Kenn Mcdonough MD [Primary Care Provider] - 3-5 Days if not improving Activity Restrictions/Additional Instructions: Please follow-up with concrete block plant supervisor. Please return if any worsening of symptoms. Monitor your O2 saturation take medications as prescribed. Stay well-hydrated. Disposition Disposition: Home, Self Care Discharge Date/Time: 08/12/22 13:12
[2022-08-12 13:09] VITALS: O2SAT 97
== END 2022-08-12 13:12 | disposition home or self-care (01) ==
PROVIDERS: Emergency Provider Emergency Medicine; PCP Family Medicine; Visit Provider Emergency Medicine
DX: U07.1 COVID-19 (principal); G47.33 Obstructive sleep apnea (adult) (pediatric)
CPT/HCPCS: 99282

== ENCOUNTER → 2023-08-15 | Outpatient (CLI) | payer OTHER, SELFPAY ==
[2023-08-15 10:08] LABS: Hematocrit 45.8 % (40-54); Hemoglobin 15.9 g/dL (13.0-16.5)
[2023-08-15 11:03] LABS: ALB/GLOB Ratio 1.2 RATIO (0.9-2.4); AST(SGOT) 20 U/L (15-37); Alanine Aminotransfer ALT/SGPT 40 U/L (16-61); Albumin, Serum 3.8 g/dL (3.2-5.0); Alkaline Phosphatase 78 U/L (45-117); Anion Gap 5 (5-15); BUN 13 mg/dL (7-18); BUN/Creat Ratio 13.4 RATIO (10-20); Calcium,Total 8.9 mg/dL (8.5-10.1); Chloride 105 mmol/L (98-107); Cholesterol 193 mg/dL (200); Creatinine, Serum 0.97 mg/dL (0.70-1.30); EST Glomerular Filtration Rate 88 mL/min (>60); Est Glom Filt Rate - Afr Amer 107 mL/min (>60); Estradiol 41.6 pg/mL; Follicle Stimulating Hormone < 0.2 mIU/mL; Globulin 3.2 g/dL (2.2-4.2); Glucose 92 mg/dL (74-106); High Density Lipoprotein 66 mg/dL; Luteinizing Hormone < 0.2 mIU/mL; PSA,Total - Annual Screen 1.99 ng/mL (0.00-4.00); Potassium 3.4 mmol/L (3.5-5.1); Prolactin 8.6 ng/mL; Sodium Level 139 mmol/L (136-145); Triglycerides 50 mg/dL; Very Low Density Lipoprotein 10 mg/dL (5-40)
[2023-08-21 14:09] LABS: Insulin Like Growth Factor 181 ng/mL (84-270); Sex Hormone-binding Globulin 28.6 nmol/L (16.5-55.9); Testosterone, % Free 2.35 % (1.50-4.20); Testosterone, Free 16.43 ng/dL (5.00-21.00); Testosterone, Total 699 ng/dL (264-916)
== END | disposition home or self-care (01) ==
LOC: LAB 08:57
PROVIDERS: PCP Family Medicine; Referring Provider Registered Nurse; Visit Provider Registered Nurse
DX: E29.1 Testicular hypofunction (principal); R53.83 Other fatigue; R68.82 Decreased libido; R63.5 Abnormal weight gain; R39.16 Straining to void; Z12.5 Encounter for screening for malignant neoplasm of prostate
CPT/HCPCS: 36415; 80053; 80061; 82627; 82670; 83001; 83002; 84146; 84153; 84270; 84305; 84402; 84403; 84443; 85014; 85018; 82626; G0103

== ENCOUNTER → 2023-09-23 | Outpatient (CLI) | payer OTHER, SELFPAY ==
--- OUTSIDE RECORDS SUMMARY | 2023-09-23 07:18 | XMS RPT_ITS | CCD ---
Author Name Unknown Address [address] [place] [address] Organization [facility] Care Team Providers Care Travel Professional Name Role Phone Yousif CAMPOVERDE MD, Frank A Primary Care Provider Twila vailable Unavailable Primary Care Provider KENN Cazares Primary Care Unavailable KENN MONTALVO Referring Unavailable LIAM HOOPER Attending Unavailable KENN MONTALVO Primary Care Unavailable LIAM HOOPER Attending Unavailable Kenn Montalvo MD Primary Care Provider Allergies Allergy Classification Reported Allergen(s) Allergy Type Date of Onset Reaction(s) Facility (6 sources) Sulfonamides (Antibiotic); Translations: [SULFA (SULFONAMIDE ANTIBIOTICS)] Propensity to adverse reactions 5 [facility] Work Phone: Medications Current Medications Medication Drug Class(es) Dates Sig (Normalized) Sig (Original) amLODIPine 10 mg / atorvastatin 20 mg oral tablet (1 source) Dihydropyridine Calcium Channel Cherie, HMG-CoA Reductase Inhibitor take 1 tablet by mouth once daily amLODIPine-atorva statin (CADUET) 10-20 mg per tablet Take 1 (one) tablet by mouth daily 20mg . 0 Active amoxicillin 500 mg oral capsule (1 source) Penicillin-class Antibacterial Start: 02-03-2023 End: 02-13-2023 take 2 capsules by mouth twice daily amoxicillin (AMOXIL) 500 mg capsule Take 2 capsules by mouth twice daily for 10 days. 40 capsule 0 02/03/2023 02/13/2023 Active Completed/Discontinued Medications Medication Drug Class(es) Dates Sig (Normalized) Sig (Original) [id number] 200 actuat albuterol 0.09 mg/actuat metered dose inhaler (3 sources) beta2-Adrenergic Agonist Start: 08-06-2020 take 2 puff(s) by inhalation every four hours as needed albuterol HFA (PROVENTIL HFA, VENTOLIN HFA) 90 mcg/actuation inhaler Inhale 2 Puffs as instructed every 4 hours as needed for up to 10 days. 8 g 1 08/06/2020 Active Problems Active Problems Problem Classification Problem Date Documented Da te Episodic/Chronic Essential hypertension (1 source) Essential hypertension; Translations: [Essential (primary) hypertension] Onset: 10-25-2022 10-25-2022 Chronic Hyperplasia of prostate (2 sources) Benign prostatic hyperplasia with lower urinary tract symptoms; Translations: [Benign prostatic hyperplasia with lower urinary tract symptoms] Onset: 10-25-2022 Chronic Other lower respiratory disease (1 source) Cough; Translations: [Cough] Episodic Other male genital disorders (2 sources) Other male erectile dysfunction; Translations: [Other male erectile dysfunction] Onset: 10-25-2022 Chronic Residual codes; unclassified (1 source) Obstructive sleep apnea syndrome; Translations: [Obstructive sleep apnea (adult) (pediatric)] Onset: 10-25-2022 10-25-2022 Chronic Past or Other Problems Problem Classification Problem Date Documented Da te Episodic/Chronic Genitourinary symptoms and ill-defined conditions (4 sources) Urgency of urination; Translations: [Frequency of micturition] Onset: 10-25-2022 Episodic Melanomas of skin (3 sources) H/O Malignant melanoma; Translations: [Personal history of malignant melanoma of skin] Onset: 04-02-2011 04-02-2011 Episodic Other circulatory disease (1 source) Elevated blood-pressure reading, without diagnosis of hypertension; Translations: [Elevated blood-pressure reading, without diagnosis of hypertension] Onset: 11-01-2018 Episodic Other diseases of kidney and ureters (2 sources) Other obstructive and reflux uropathy; Translations: [Other obstructive and reflux uropathy] Onset: 10-25-2022 Episodic Other lower respiratory disease (4 sources) Nodule of lung; Translations: [Solitary pulmonary nodule] Onset: 08-29-2014 08-29-2014 Episodic Residual codes; unclassified (3 sources) History of atypical nevus; Translations: [Personal history of other specified conditions] Onset: 04-02-2011 04-02-2011 Episodic Syncope (1 source) Near syncope; Translations: [Syncope and collapse] Onset: 10-25-2022 10-25-2022 Episodic Viral infection (1 source) COVID-19; Translations: [Other specified viral infection] Onset: 07-31-2020 10-25-2022 Episodic Encounters Encounter Date Encounter Type Care Provider Facility Start: 07-29-2023 Refill Olesya Ann MA [facility] Start: 04-30-2023 ambulatory KENN MONTALVO [facility] Start: 02-03-2023 Refill Franklyn Fierro DO Work Phone: [facility] Start: 10-25-2022 End: 10-25-2022 ambulatory KENN MONTALVO [facility] Start: 12-15-2021 Refill Franklyn Fierro DO Work Phone: [facility] Start: 11-01-2018 ambulatory [facility] Plan of Treatment Date Care Activity Detail Author Start: 05-02-2023 Influenza vaccination C [facility] Start: 2022 COLOGUARD (FIT-DNA) COLOGUARD (FIT-D NA) [facility] Start: 2022 Colonoscopy COLONOSCOPY [facility] Start: 2022 COLORECTAL CANCER SCREENING COLORECTAL CANCER SCREENING [facility] Start: [address] COLONOGRAPHY [facility] Start: 2022 DIABETES SCREEN DIABETES SCREEN [facility] Start: 2022 FECAL OCCULT BLOOD FECAL OCCULT BLOO D [facility] Start: 2022 SIGMOIDOSCOPY SIGMOIDOSCOPY [facility] Start: 09-01-2022 DEPRESSION ASSESSMENT DEPRESSION ASS ESSMENT [facility] Start: 05-02-2022 Influenza vaccination INFLUENZA (Sea son Ended) [facility] Start: 06-19-2021 LIPID SCREEN LIPID SCREEN [facility] Start: 11-25-2019 Tetanus vaccination Tetanus: Every 1 0yrs [facility] Start: 11-25-2019 Urine microalbumin profile DTA P,TDAP,TD (2 - Td or Tdap) [facility] Start: 11-18-1995 HEPATITIS C SCREENING HEPATITIS C [facility] Start: 11-18-1995 Hepatitis C screening Hepatitis C [facility] Start: 11-18-1995 HIV SCREENING HIV SCREENING [facility] Start: 1992 HIV screening HIV Screening [facility] Start: 1989 Adult depression scr eening assessment [facility] Start: 1982 COVID-19 VACCINE (1) COVID-19 VACCIN E (1) [facility] Start: 1980 History and physical examination, annual for health maintenance Wellness Visit [facility] Start: 05-20-1978 COVID-19 VACCINE (#1) COVID-19 VACCI NE (#1) [facility] Start: 1977 HEPATITIS B (1 of 3 - 3-dose series) HEPATITIS B (1 of 3 - 3-dose series) [facility] Start: 1977 Prostate specific an tigen measurement PSA Level [facility] Start: 1977 Screening for malign ant neoplasm of colon [facility] Immunizations Immunization Date Immunization Notes Care Provider Dexter cheng 05-30-2018 influenza, injectabl e, quadrivalent, contains preservative Franklyn Fierro DO Work Phone: [facility] 06-07-2017 influenza, injectabl e, quadrivalent, contains preservative Franklyn Fierro DO Work Phone: [facility] 05-24-2016 influenza, injectabl e, quadrivalent, contains preservative Franklyn Wange DO Work Phone: [facility] Work Phone: 06-10-2015 influenza, injectabl e, quadrivalent, contains preservative Franklyn Fierro DO Work Phone: [facility] 06-09-2014 influenza, seasonal, injectable Franklyn Fierro DO Work Phone: [facility] 07-11-2012 influenza virus vaccine, unspecified formulation Franklyn Fierro DO Work Phone: [facility] Work Phone: 11-24-2009 tetanus toxoid, redu sahra diphtheria toxoid, and acellular pertussis vaccine, adsorbed Franklyn Fierro DO Work Phone: [facility] 07-16-2008 influenza virus vaccine, unspecified formulation Franklyn Fierro DO Work Phone: [facility] Work Phone: Payers Date Payer Category Payer Unknown [id number] 2019 Unknown MMO MMO [employer] [id number] 2019-Present [phone] [address] [place] [address] PPO [id number] 2019 Unknown [id number] 1977 Unknown [id number] 1977 Unknown [id number] Social History Date Type Detail Facility Start: 05-12-2018 End: 10-25-2022 Tobacco smoking status NHIS Never smoked tobacco [facility] Work Phone: Start: 05-15-2018 End: 04-17-2022 Alcohol intake Current non-drinker of alcohol (finding) [facility] Start: 1975 Sex Assigned At Not on file C [facility] Start: 05-12-2018 End: 10-25-2022 Tobacco use and exposure Smokeless tobacco non-user [facility] Start: 10-25-2022 Alcohol intake Lifetime non-d elisabeth (finding) [facility] Start: 10-25-2022 History of Social function [facility] Start: 10-25-2022 Tobacco use panel [facility] Start: 1975 [facility] Start: 10-01-2022 Gender identity Identifies as male gender (finding) [facility] History of Past illness Narrative 04-02-2011 Note Date & Type Note Facility documented as of this encounter (statuses as of 12/15/2021) [facility] History of Past illness Narrative 04-02-2011 Note Date & Type Note Facility documented as of this encounter (statuses as of 12/15/2021) [facility] History of Past illness Narrative 04-02-2011 Note Date & Type Note Facility documented as of this encounter (statuses as of 02/03/2023) [facility] Evaluation note Note Date & Type Note Facility documented in this encounter [facility] Summary Purpose Family History No Family History Records FoundNo Family History Records Found Advance Directives No Advanced Directives Records FoundNo Advanced Directives Records Found Additional Source Comments Source Comments (unrecognize d section and content) In the event this informatio n is protected by the Federal Confidentiality of Alcohol and Drug Abuse Patient Records regulations: The Federal rules restrict any use of the information to criminally investigate or prosecute any alcohol or drug abuse patient.[facility] the event this information is protected by the Federal Confidentiality of Alcohol and Drug Abuse Patient Records regulations: The Federal rules restrict any use of the information to criminally investigate or prosecute any alcohol or drug abuse patient.[facility] the event this information is protected by the Federal Confidentiality of Alcohol and Drug Abuse Patient Records regulations: The Federal rules restrict any use of the information to criminally investigate or prosecute any alcohol or drug abuse patient.[facility] Care Teams (unrecognized sec tion and content) Travel Professional Relationship Specialty Start Date End Date Dilshad Dodd III, MD NO FORWARDING ADDRESS PCP - General 04/13/03 Travel Professional Relationship Specialty Start Date End Date Kenn Montalvo MD [address] [place] [address] PCP - General Family Medicine 10/01/22 (unrecognized sect ion and content) No Status Records FoundNo Status Records Found INFORMATION SOURCE (unrecogn ized section and content) DATE CREATED AUTHOR AUTHOR'S ORGANIZ ATION 05/01/2023 [facility] Reason for Visit (unrecogniz ed section and content) FOR RECORDS PERTAINING TO PATIENTS WHO ARE OR HAVE BEEN ENROLLED IN A CHEMICAL DEPENDENCY/SUBSTANCEABUSE PROGRAM, SOME INFORMATION MAY BE OMITTED. This clinical summary was aggregated from multiple sources. Caution should be exercised in using it in the provision of clinical care. This summary normalizes information from multiple sources, and as a consequence, information in this document may materially change the coding, format and clinical context of patient data. In addition, data may be omitted in some cases. CLINICAL DECISIONS SHOULD BE BASED ON THE PRIMARY CLINICAL RECORDS. [facility] [employer] [facility]. provides no warranty or guarantee of the accuracy or completeness of information in this document.
--- NOTE | 2023-09-23 07:23 | CDU_ITS ---
Reason For Study: Carotid Bruit Rt. Velocities/BP Lt. Velocities/BP Prox CCA 101.1/24.9 cm/sec. Prox CCA 64.5/20.1 cm/sec. Mid CCA 83.9/27.4 cm/sec. Mid CCA 72.8/33.5 cm/sec. Dist CCA 72.8/24.9 cm/sec. Dist CCA 86.3/42.1 cm/sec. Prox ICA 86.3/24.9 cm/sec. Prox ICA 74.9/25.8 cm/sec. Mid ICA 85.4/42.8 cm/sec. Mid ICA 81.5/24.8 cm/sec. Dist ICA 80.2/37.2 cm/sec. Dist ICA 87.2/26.7 cm/sec. Rt. ICA/CCA = 1.0. Lt. ICA/CCA = 1.2. Prox ECA 117.0/28.6 cm/sec. Prox ECA 85.1/22.5 cm/sec. Rt. Vert. 40.9/17.3 cm/sec. Lt. Vert. 60.7/20.1 cm/sec. Right Extracranial There is intimal thickening but no significant atherosclerotic plaque noted in the right common carotid artery. There is intimal thickening but no significant atherosclerotic plaque noted in the right internal carotid artery. There is intimal thickening but no significant atherosclerotic plaque noted in the right external carotid artery. Antegrade flow is noted in the right vertebral artery. Left Extracranial There is intimal thickening but no significant atherosclerotic plaque noted in the left common carotid artery. There is intimal thickening but no significant atherosclerotic plaque noted in the left internal carotid artery. There is intimal thickening but no significant atherosclerotic plaque noted in the left external carotid artery. Antegrade flow is noted in the left vertebral artery. Procedure Carotid Duplex 07114. This is a Carotid Duplex examination using B-mode, color flow and specral Doppler. The exam was diagnostic. Exam performed in department. VL/Carotid Duplex Ultrasound Interpretation Summary Intimal thickening at the proximal right internal carotid artery with less than 50% stenosis Less than 50% stenosis right external carotid artery Intimal thickening at the proximal left internal carotid artery with less than 50% stenosis Less than 50% stenosis left external carotid artery Patent and antegrade vertebral arteries bilaterally Ordering Physician: Gray Kim Referring Physician: Kenn Mcdonough Performed By: Henri Morales RVT
--- NOTE | 2023-09-23 07:24 | CT_ITS ---
STUDY: CT CHEST WITHOUT CONTRAST REASON FOR EXAM: Male, 47 years old. FH Limited chest OVER READ ONLY RADIATION DOSAGE (If Supplied By Facility): CTDIvol = ( 12.19 ) mGy, DLP = ( 243.79 ) mGycm TECHNIQUE: Transaxial imaging was performed without the administration of intravenous contrast material. Individualized dose optimization techniques were used for this CT. COMPARISON: No relevant priors. FINDINGS: CHEST The lungs are normal. There is no demonstrated pleural abnormality. Normal heart and pericardium. No coronary artery calcification is seen. There are small lymph nodes within the mediastinum, which are normal in size and morphology most compatible with reactive lymph hyperplasia. Calcified bilateral hilar lymph nodes. Calcified granulomas in the right lung. Normal unenhanced pulmonary arteries. Normal aorta arch and descending thoracic aorta. Normal osseous structures. Small hiatal hernia. CT/Limited Chest CT Cardiac Only IMPRESSION: No evidence of coronary artery calcification. Calcified granulomas in both lungs. . Electronically Signed: Heraclio Prince MD at 14:42 EST ,
--- NOTE | 2023-09-23 16:48 | CA.SCORE ---
Calcium Scoring Date of Study:: 09/23/23 Indications Indications: Family history, hypertension Coronary Calcium Scoring: High-resolution Computed Tomographic imaging of the chest was performed on [09/23/2023], with particular attention paid to the coronary arteries. Images from the examination were analyzed for the presence and extent of coronary artery calcification , using coronary calcium quantification software. The patient tolerated the procedure well and there were no complications. The results of the coronary calcification analysis are provided below. Findings Coronary Artery Left Main (LM): 0 Left Anterior Descending (LAD): 0 Left Circumflex (LCX): 0 Right Coronary Artery (RCA): 0 Total Agatston Score: 0 Percentile Rankinth percentile Calcium Scoring Interpretation: Different methods to categorize the overall amount of coronary plaque. Overall amount CAC SIS Visual of coronary plaque P1 Mild -100 <2 1-2 vessels with mild amount of plaque P2 Moderate 101-300 3-4 1-2 vessels with moderate amount, 3 vessels with mild amount of plaque P3 Severe 301-999 5-7 3 vessels with moderate amount, 1 vessel with severe amount of plaque P4 Extensive >1000 >8 2-3 vessels with severe amount of plaque Conclusion: No atherosclerotic plaquing noted.
== END | disposition home or self-care (01) ==
PROVIDERS: PCP Family Medicine; Referring Provider Internal Medicine Cardiovascular Disease; Visit Provider Internal Medicine Cardiovascular Disease
DX: I10 Essential (primary) hypertension (principal); R09.89 Other specified symptoms and signs involving the circulatory and respiratory systems
CPT/HCPCS: 75571; 76380; 93880

== ENCOUNTER → 2024-07-26 | Outpatient (CLI) | payer OTHER, SELFPAY ==
[2024-07-26 11:28] LABS: Hemoglobin A1c 5.2 % (3.8-5.6)
[2024-07-26 12:06] LABS: ALB/GLOB Ratio 1.3 RATIO (0.9-2.4); AST(SGOT) 22 U/L (15-37); Alanine Aminotransfer ALT/SGPT 53 U/L (16-61); Albumin, Serum 3.9 g/dL (3.2-5.0); Alkaline Phosphatase 76 U/L (45-117); Anion Gap 8 (5-15); BUN 17 mg/dL (7-18); BUN/Creat Ratio 18.6 RATIO (10-20); Calcium,Total 8.8 mg/dL (8.5-10.1); Chloride 109 mmol/L (98-107); Cholesterol 208 mg/dL (200); Creatinine, Serum 0.91 mg/dL (0.70-1.30); EST Glomerular Filtration Rate 95 mL/min (>60); Est Glom Filt Rate - Afr Amer 115 mL/min (>60); Estradiol < 11.0 pg/mL; Follicle Stimulating Hormone 4.6 mIU/mL; Glucose 98 mg/dL (74-106); High Density Lipoprotein 81 mg/dL; Luteinizing Hormone 3.7 mIU/mL; Potassium 3.8 mmol/L (3.5-5.1); Protein, Total 6.9 g/dL (6.4-8.2); Sodium Level 142 mmol/L (136-145); Thyroid Stim Hormone (TSH) 0.488 uIU/mL (0.358-3.740); Triglycerides 61 mg/dL; Very Low Density Lipoprotein 12 mg/dL (5-40)
[2024-08-03 15:09] LABS: Insulin Like Growth Factor 131 ng/mL (81-263); Sex Hormone-binding Globulin 48.5 nmol/L (16.5-55.9); Testosterone, % Free 3.04 % (1.50-4.20); Testosterone, Free 10.15 ng/dL (5.00-21.00); Testosterone, Total 334 ng/dL (264-916)
== END | disposition home or self-care (01) ==
LOC: LAB 09:42
PROVIDERS: PCP Family Medicine; Referring Provider Registered Nurse; Visit Provider Registered Nurse
DX: E29.1 Testicular hypofunction (principal); R53.83 Other fatigue; Z12.5 Encounter for screening for malignant neoplasm of prostate; R68.82 Decreased libido; R63.5 Abnormal weight gain; R35.0 Frequency of micturition; R39.16 Straining to void
CPT/HCPCS: 36415; 80053; 80061; 82627; 82670; 83001; 83002; 83036; 84146; 84270; 84305; 84402; 84403; 84443; 85014; 82626

== ENCOUNTER 2024-11-23 05:06 | Emergency (ER) | payer OTHER, SELFPAY ==
[2024-11-23 05:08] VITALS: BP 188/110; PULSE 75; RESP 16; TEMP 36.6; O2SAT 94; BMI 27.8
--- NOTE | 2024-11-23 05:20 | EX.ED.VIS.UR ---
HPI HPI - URI History of Present Illness Chief Complaint: Ear Problem Informant: patient Onset/Context/Timing Onset: Days Context: Gradual Onset Timing: Continuous Quality: Throbbing, stabbing Location: Left ear Worsened by: - (Nothing) Relieved by: - (Nothing) Associated Symptoms Associated Symptoms: Negative for Nasal Congestion, Headache, Sinus Pressure, Myalgias, Nausea, Vomiting, Diarrhea, Shortness of Breath, Chest Pain, Nonproductive cough, Hemoptysis or Productive Cough Narrative Narrative: Patient presents with left ear pain that has been getting worse over the past several days. Patient states that he saw his primary care physician who told him and that it was an ear infection and prescribed him Augmentin. Patient states the pain has been persistent. Patient states he saw a ENT who told him that there was a small perforation and that there could be something behind his eardrum. Patient denies any fevers or chills. Patient describes his pain as throbbing and stabbing. Patient states nothing makes it better nothing makes it worse. ROS ROS ED Constitutional Constitutional ED: Denies chills or fever(s) Eyes Eyes: Denies blurry vision or change in vision ENT ENT ED: Reports ear pain left; Denies rhinorrhea or sore throat Cardiovascular Cardiovascular: Denies chest pain or palpitations Respiratory/Chest Respiratory/Chest: Denies cough or dyspnea Gastrointestinal Gastrointestinal: Denies nausea or vomiting Genitourinary Genitourinary ED: Denies dysuria or hematuria Musculoskeletal Musculoskeletal: Reports neck pain; Denies back pain Integumentary Denies abscess or rash Neurologic Neurologic: Denies headache(s) or weakness Allergic/Immunologic Allergic/Immunologic ED: Denies mouth swelling or urticaria [facility] Medical History Obstructive sleep apnea COVID-19 virus detected (07/31/20) Essential (primary) hypertension Elevated norepinephrine level Chest pain lipoma right chest wall Malignant melanoma of upper back Home Medications ?Medication ?Instructions ?Recorded ?Last Taken ?Type lisinopril 20 mg tablet See Rx Instructions .Route 09/09/24 Unknown Rx .COMPLEX #180 tabs amlodipine 5 mg tablet 5 mg PO QDAY 10/05/24 Unknown History hydrocodone-acetaminophen 5-325mg 1 tab PO Q6H PRN PRN Pain 3 days 11/23/24 Unknown Rx 5mg-325mg #10 TABLETS Allergy/AdvReac Type Severity Reaction Status Date / Time Sulfa (Sulfonamide Allergy Unknown Verified 11/23/24 05:12 Antibiotics) Family History Mother Thyroid disorder Surgical History s/p Excsion lipoma right chest wall (12/24/17) history excision melanoma on back history pilonidal cystectomy History of vasectomy Social History Smoking Status: Never smoker alcohol intake: current alcohol intake frequency: a few times a month substance use type: does not use caffeine: Yes (Occasional energy drink or pre workout drink) Type: other EXAM Physical Exam Const Vital Signs: 11/23/24 05:08 11/23/24 07:48 Temperature 98 F 97.7 F L Temperature Source Oral Pulse Rate 75 88 Respiratory Rate 16 17 Blood Pressure 188/110 H 130/82 H Blood Pressure Mean 136 98 Pulse Ox 94 99 Oxygen Delivery Method Room Air Positive well nourished and well developed General Appearance ED: well developed and NAD HEENT Reports moist mucous membranes HEENT Narrative: The left tympanic membrane is erythematous. There is no perforation visualized. External auditory canal is clear. There is no tenderness over the mastoid process. normocephalic and atraumatic Neck supple, no meningeal signs and no JVD Resp normal respiratory effort and clear to auscultation bilaterally Cardio Rate: regular rate Rhythm: regular rhythm Neuro oriented x3, CN's II-XII intact bilaterally and no sensory deficits noted Sensorium / Orientation: alert Motor Exam: strength 5/5 throughout Psych mental status grossly normal MDM MDM MDM Narrative Medical decision making narrative: Differential diagnosis includes mastoiditis, otitis media, and abscess. CBC will be obtained to assess for leukocytosis and anemia. Basic metabolic profile will be obtained to assess for electrolyte abnormality and renal function. CT scan of the orbits cell and ear will be obtained to assess for abscess and mastoiditis. Lab Data Attestation: I reviewed the patient's lab results. Lab results narrative: CBC was reviewed and was within normal limits. Basic metabolic profile was reviewed and was essentially within normal limits. Labs: Laboratory Results - last 24 hr 11/23/24 05:35 WBC 5.8 RBC 5.61 Hgb 16.2 Hct 46.6 MCV 83.1 MCH 28.9 MCHC 34.8 RDW Std Deviation 37.6 RDW Coeff of [place] 12.5 Plt Count 211 MPV 10.3 Immature Gran % (Auto) 0.500 Neut % (Auto) 53.1 Lymph % (Auto) 35.1 [place] % (Auto) 9.1 Eos % (Auto) 1.7 Baso % (Auto) 0.5 Absolute Neuts (auto) 3.1 Absolute Lymphs (auto) 2.04 Nucleated RBC % 0 Sodium 138 Potassium 4.1 Chloride 103 Carbon Dioxide 25.4 Anion Gap 10 BUN 20 H Creatinine 1.20 Estim Creat Clear Calc 90.24 Est GFR (MDRD) Non-Af 75 BUN/Creatinine Ratio 16.7 Glucose 123 H Calcium 8.9 Radiography Diagnostic Testing: Clinical Impression(s) from Imaging Studies CT Orbit Sella Inner 11/23/24 05:24 IMPRESSION: Tessa with opacification left mastoid air cells and middle ear as described above. Findings concerning for acute mastoiditis. No erosion of the mastoid air trabeculations, to suggest confluence otomastoiditis. [facility] [place] [facility] scan of the orbit, sella, and ear was obtained. There is near complete opacification of the left mastoid air cells and middle ear. This is concerning for acute mastoiditis. There is no erosion of the mastoid air trabeculations. This was interpreted by the radiologist and was also independently reviewed by myself. Treatment and Re-Evaluation Narrative: Patient was given a dose of Unasyn. Patient was advised of his findings. Patient was advised of the need for admission. There is no ENT coverage here today. Therefore, the patient will need to be transferred for IV antibiotics and ENT consultation. Case was discussed with [facility] transfer line. Case was discussed with Dr. Kenneth Swift from ENT at [facility]. He felt that the patient could follow-up with him in the office today. He does not feel the patient needs to be transferred for IV antibiotics at this time since clinically he does not have any erythema or swelling in the postauricular area. He stated he will be in the office all day today and we will be happy to see him in his office. Patient is agreeable with this. Patient is given prescription for a short course of [place] to take as needed for pain. Patient was instructed to continue his Augmentin as prescribed. Discharge Plan Triage Chief Complaint: Ear Problem ED Provider: Nahun Chambers Dx/Rx/DC Orders Clinical Impression: Acute mastoiditis of left side, Acute left otitis media Instructions: ED Otitis Media Adult Prescriptions: New hydrocodone-acetaminophen 5-325 mg tablet 1 tab PO Q6H PRN PRN (Reason: Pain) 3 Days Qty: 10 0RF No Action amlodipine 5 mg tablet 5 mg PO QDAY lisinopril 20 mg tablet See Rx Instructions .ROUTE .COMPLEX Qty: 180 3RF Dose Instruction: TAKE 1 TABLET BY MOUTH TWICE A DAY Rx Instructions: TAKE 1 TABLET BY MOUTH TWICE A DAY Primary Care Provider: Kenn Mcdonough Referrals: Kenn Mcdonough MD [Primary Care Provider] - Activity Restrictions/Additional Instructions: Call Dr. Kneneth Swift for an appointment today. His phone number is . His address is [address] [place] [address] [address] [place] [employer] Language: Serbian Disposition Disposition: Home, Self Care Discharge Date/Time: 11/23/24 07:49
--- NOTE | 2024-11-23 05:24 | CT_ITS ---
EXAM: CT temporal bone with contrast. TECHNIQUE: Unenhanced axial images were acquired and reconstructed in the sagittal and coronal planes. 75 cc Isovue 370 was administered. COMPARISON: None FINDINGS: There is bilateral patency of the cartilaginous and bony portions of the external auditory canals. The ossicles demonstrate normal morphology. The vestibular aqueducts are within normal limits. The petromastoid canals are within normal limits. The inner ear otic capsule/labyrinthine structures are normal. Patent round and oval windows. Cochlear canals are unremarkable. There is no superior semicircular canal or tegmen tympani dehiscence. No evidence of fenestral or retrofenestral otosclerosis by CT There is no complete opacification of the left mastoid air cells and the middle ear canal. The mastoid air cells trabeculations are maintained without evidence of erosion.. The left anterior tympanic recess, Prussak's space and sinus tympani demonstrate near complete opacification. The left scutum is intact. There is thickening of the left tympanic membrane. The right mastoid air cells are patent. The right Prussak's space and sinus tympani are also clear. Right tympanic membrane is maintained. The internal auditory canals are normal and symmetric in size and configuration. The facial nerves demonstrate normal course and caliber. The mastoid air cells are unopacified. No aberrant internal carotid artery or high riding jugular bulb. The sigmoid plates are preserved. The bony canals of the posterior emissary veins are within normal size limits. No CT evidence of persistent stapedial artery. The temporomandibular joints (TMJ) are unremarkable. Visualized brain parenchyma, sinuses, and orbits are unremarkable CT/Orb Sella Post Fossa Ear W/CON IMPRESSION: Tessa with opacification left mastoid air cells and middle ear as described ab ove. Findings concerning for acute mastoiditis. No erosion of the mastoid air trabeculations, to suggest confluence otomastoidi tis. Reading Location: [facility]
[2024-11-23 05:50] LABS: Absolute Lymphocyte Count 2.04 X10^3/uL (0.83-4.51); Absolute Neutrophil Count 3.1 X10^3/uL (2.0-7.7); Basophil# 0.03 X10^3/uL; Basophil% 0.5 % (0-1); Eosinophils% 1.7 % (0-5); Hematocrit 46.6 % (40-54); Hemoglobin 16.2 g/dL (13.0-16.5); Lymphocyte # 2.04 X10^3/ul (0.83-4.51); Lymphocyte % 35.1 % (19-41); Mean Corp Hgb Conc 34.8 g/dL (32-36); Mean Corpuscular Hgb 28.9 pg (27.0-32.0); Mean Corpuscular Volume 83.1 fL (80-94); Mean Platelet Vol. 10.3 fl (6.2-12.0); Monocyte# 0.53 X10^3/uL; Monocyte% 9.1 % (0-10); NRBC Flagged by Analyzer 0 % (0-5); Neutrophil # 3.09 X10^3/uL (2.7-7.7); Neutrophil % 53.1 % (47-70); Platelet Count 211 K/mm3 (150-450); RBC Distribution Width CV 12.5 % (11.6-14.6); RBC Distribution Width SD 37.6 fl (35.1-43.9); Red Blood Count 5.61 M/mm3 (4.6-6.2); White Blood Count 5.8 K/mm3 (4.4-11.0)
[2024-11-23] MEDS: Ampicillin/Sulbactam 3 GM in 0.9% Normal Saline (100mL MB+) 100 ML IV (05:54)
[2024-11-23 05:59] LABS: Anion Gap 10 (5-15); BUN 20 mg/dL (4-19); BUN/Creat Ratio 16.7 RATIO (10-20); Calcium,Total 8.9 mg/dL (7.6-11.0); Carbon Dioxide 25.4 mmol/L (21.0-32.0); Chloride 103 mmol/L (98-108); EST Glomerular Filtration Rate 75 (>60); Estimated Creatinine Clearance 90.24 ml/min (50-250); Glucose 123 mg/dL (70-99); Potassium 4.1 mmol/L (3.3-5.1); Sodium Level 138 mmol/L (133-145)
[2024-11-23 07:48] VITALS: BP 130/82; PULSE 88; RESP 17; TEMP 36.5; O2SAT 99
== END 2024-11-23 07:49 | disposition home or self-care (01) ==
PROVIDERS: Emergency Provider Emergency Medicine; PCP Family Medicine; Visit Provider Emergency Medicine
DX: H70.002 Acute mastoiditis without complications, left ear (principal); H66.92 Otitis media, unspecified, left ear; I10 Essential (primary) hypertension; G47.33 Obstructive sleep apnea (adult) (pediatric); Z79.899 Other long term (current) drug therapy; Z86.16 Personal history of COVID-19
CPT/HCPCS: 70481; 80048; 85025; 96365; 99283; Q9967; A4216; J0295